=== PATIENT | male | born 1970 | race Caucasian/White ===

== ENCOUNTER 2020-03-08 00:12 | Outpatient (CLI) | payer BC, SELFPAY ==
[2020-03-09 00:18] LABS: SARS-CoV-2 RNA PCR Negative
== END 2020-03-08 00:13 | disposition home or self-care (01) ==
LOC: ANHCOVIDDT 00:12
PROVIDERS: PCP Nurse Practitioner Family; Visit Provider Internal Medicine Gastroenterology
DX: Z01.818 Encounter for other preprocedural examination (principal); Z11.59 Encounter for screening for other viral diseases
CPT/HCPCS: 87635; C9803; U0003

== ENCOUNTER 2020-03-11 01:52 | Day surgery (SDC) | payer BC, SELFPAY ==
[2020-03-04 13:02] VITALS: BMI 24.7
[2020-03-11 07:32] VITALS: BP 133/85; PULSE 95; RESP 18; TEMP 36.9; O2SAT 100; BMI 23.3
[2020-03-11] MEDS: LACTATED RINGERS 1,000 ML 150 ML IV CONT (07:50)
--- NOTE | 2020-03-11 07:53 | P.PNAN_ITS ---
Anes - Initial Pre Proc Eval Procedure: Operation Date: 03/11/20 08:30 Proposed Procedures p Colonoscopy - Alvino Lopez MD Date/Time: 03/11/20 07:53 Surgeon: Alvino Lopez MD Pre Op Diagnosis: Change in Bowel, hx Of Polyps Patient Data Age: 49 Gender: M Height: 6 ft 1 in Weight: 80.2 kg Last Vital Signs Temp 36.9 C 03/11/20 07:32 Pulse 95 03/11/20 07:32 Resp 18 03/11/20 07:32 BP 133/85 03/11/20 07:32 Pulse Ox 100 03/11/20 07:32 Allergies Allergy/AdvReac Type Severity Reaction Status Date / Time No Known Allergies Allergy Verified 03/11/20 07:25 Home Medications Medication Instructions Recorded Confirmed Type hydrochlorothiazide 25 mg PO DAILY 03/04/20 03/04/20 History lisinopril 10 mg PO DAILY 03/04/20 03/04/20 History omeprazole 40 mg PO DAILY 03/04/20 03/04/20 History Patient hx anesthesia problems: none Family hx anesthesia problems: none [facility] Past Medical History Medical History (Updated 03/11/20 @ 07:56 by Reji Miles MD) Blood in stool ETOH abuse HTN (hypertension) Surgical History Surgical History (Updated 03/11/20 @ 07:57 by Reji Miles MD) Hx of tonsillectomy Social History Social History (Updated 03/11/20 @ 07:57 by Reji Miles MD) Smoking status: Current every day smoker Anes - Eval Final PreProcedure Day of Procedure 03/11/20 07:53 Patient weight: normal Heart: regular rate and rhythm Lungs: clear to auscultation Airway: Mallampati scale class II Neurological: alert and oriented Last oral intake: >/= 8 hours ASA classification: III Emergent: no Anesthesia type and monitoring: general GIVS and standard monitoring Informed Consent: The patient's anesthetic plan and its attendant risks and benefits were discussed with the patient/family/POA. Questions were solicited and answers provided to the satisfaction of the patient/family/POA.
--- NOTE | 2020-03-11 08:01 | P.HP_ITS ---
History of Present Illness History of Present Illness Consent: Risks, benefits, and alternatives have been discussed and questions answered. Patient agrees to proceed with procedure. Chief complaint: Change in Bowel, hx Of Polyps Narrative: Luther Palencia Jr. is a 49 year old W male referred for colonoscopy secondary to history of colonic polyps. Patient states he had a colonoscopy 5 years ago at another institution which time polyps were removed. In addition to this patient has had some mild change in bowel pattern with some several loose stools and has had some diarrhea associated with this. No significant abdominal pain. No family history of inflammatory bowel disease or family history of colon polyps or colon cancer. No recent travel. Patient is a chronic smoker least 30 years and drinks at least 60 beers a day. I recommended he discontinue both of these. [facility] Past Medical History Medical History Blood in stool ETOH abuse HTN (hypertension) Surgical History Surgical History Hx of tonsillectomy Social History Social History (Updated 03/11/20 @ 07:57 by Reji Miles MD) Smoking status: Current every day smoker Meds Home Medications and Allergies Home Medications Medication Instructions Recorded Confirmed Type hydrochlorothiazide 25 mg PO DAILY 03/04/20 03/04/20 History lisinopril 10 mg PO DAILY 03/04/20 03/04/20 History omeprazole 40 mg PO DAILY 03/04/20 03/04/20 History Allergies Allergy/AdvReac Type Severity Reaction Status Date / Time No Known Allergies Allergy Verified 03/11/20 07:25 Vital Signs Vital Signs - 24 hr 03/11/20 07:32 Temperature 36.9 C Pulse Rate 95 Respiratory Rate 18 Blood Pressure 133/85 Pulse Oximetry 100 Exam Const: Orientation/consciousness: patient oriented x3 Resp: Auscultation: clear to auscultation bilaterally Cardio: Rate: regular rate Rhythm: regular rhythm Heart sounds: no murmurs GI: GI Palp: Yes Soft to palpation, No Tenderness to palpation present (GI), Yes No hepatosplenomegaly present and No Palpable mass present Auscultation: normal bowel sounds Neuro: General: patient oriented x3 and no focal motor deficits Extrem: General: no pedal edema Assessment and Plan Additional Plan Screening colonoscopy secondary history of colonic polyps and change in bowel pattern associated with diarrhea and rectal bleeding
[2020-03-11 09:13] VITALS: BP 110/78; PULSE 83; RESP 18; O2SAT 99
[2020-03-11 09:23] VITALS: BP 122/84; PULSE 77; RESP 18; O2SAT 100
[2020-03-11 09:33] VITALS: BP 122/83; PULSE 74; RESP 18; O2SAT 100
== END 2020-03-11 10:01 | disposition home or self-care (01) ==
PROVIDERS: PCP Nurse Practitioner Family; Visit Provider Internal Medicine Gastroenterology
PROC: 0DJD8ZZ Inspection of Lower Intestinal Tract, Via Natural or Artificial Opening Endoscopic (ICD-10-PCS; CPT 45378; principal; 2020-03-11 08:30)
DX: Z12.11 Encounter for screening for malignant neoplasm of colon (principal); K52.9 Noninfective gastroenteritis and colitis, unspecified; K64.8 Other hemorrhoids; Z86.010 Personal history of colon polyps; F10.10 Alcohol abuse, uncomplicated; I10 Essential (primary) hypertension; F17.210 Nicotine dependence, cigarettes, uncomplicated
CPT/HCPCS: 45380; 87635; 88305; C9803; J2704; J7120; U0003

== ENCOUNTER 2021-04-13 13:12 | Emergency (ER) | payer BC, SELFPAY ==
--- NOTE | 2021-04-13 13:17 | ED.EAR ---
HPI - Ear Problem General Chief complaint: Ear Stated complaint: ears Time Seen by Provider: 04/13/21 13:17 Source: patient and RN notes reviewed History of Present Illness HPI Narrative: Patient is a 50-year-old male who presents the urgent care with complaints of right ear pain. Patient states that been ongoing for approximately a week and a half. States that he had his normal follow-up exam and his ears looked fine then without an impaction . Patient states he has been using a syringe with water into the right ear and now he feels like there is fluid in the ear . Patient denies any fever or other upper respiratory complaints. No acute distress noted. Patient aware of the plan of care. Some parts of this dictation were generated by voice recognition software and may contain typographical and/or grammatical inaccuracies. Related Data Home Medications Medication Instructions Recorded Confirmed hydrochlorothiazide 25 mg PO DAILY 03/04/20 03/04/20 lisinopril 10 mg PO DAILY 03/04/20 03/04/20 omeprazole 40 mg PO DAILY 03/04/20 03/04/20 Allergies Allergy/AdvReac Type Severity Reaction Status Date / Time No Known Allergies Allergy Verified 03/11/20 07:25 Review of Systems Review of Systems: CONSTITUTIONAL: Denies fever, chills, or sweats. EYES: Denies visual changes, redness, or discharge. ENT: Denies rhinorrhea, congestion, sore throat. Reports of right otalgia CARDIOVASCULAR: Denies chest pain, palpitations, or edema. RESPIRATORY: Denies cough or dyspnea. GASTROINTESTINAL: Denies abdominal pain, nausea, vomiting, or diarrhea. GENITOURINARY: Denies dysuria or hematuria. SKIN: Denies rash or itching. MUSCULOSKELETAL: Denies back pain, joint pain, or myalgia. NEUROLOGIC: Denies headache, numbness, or weakness. All other systems reviewed are negative, except as documented in HPI. [facility] Past Medical History Medical History (Updated 04/13/21 @ 13:33 by JENN Spencer) Blood in stool ETOH abuse HTN (hypertension) Surgical History Surgical History Hx of tonsillectomy Social History Social History (Updated 03/11/20 @ 07:57 by Reji Miles MD) Smoking status: Current every day smoker Comments At the time of my signature, I reviewed and agree with the nursing past medical, surgical, social, and family history. There is no relevant family history pertinent to the patient complaint. Exam Narrative: GENERAL: This is a well-nourished, well-developed patient, in no apparent distress. HEAD: normocephalic, atraumatic. EYES: PERRL. Sclera clear/white. Vision is grossly intact. EARS: External ears normal, mild erythema and moderate drainage noted to the right auditory canal, right TM mildly injected/erythemic. Left auditory canal clear and without drainage, left TM normal without perforation. Hearing grossly intact. NOSE: External nose normal with no obvious nasal discharge, nares without redness, no rhinorrhea. THROAT: Mucous membranes moist NECK: Neck supple CARDIOVASCULAR: Regular rate and rhythm without murmurs, gallops, or rubs. RESPIRATORY: Clear to auscultation. Breath sounds equal bilaterally. No wheezes, rales, or rhonchi. SKIN: warm, intact with no suspicious lesions or rash, good texture and turgor. NEURO: awake, alert, and oriented to person, place and time. There were no obvious focal neurologic abnormalities. EXTREMITIES: No clubbing, cyanosis, or edema. Course Vital Signs Vital signs: Vital Signs Temperature 98.2 F 04/13/21 13:18 Pulse Rate 100 04/13/21 13:18 Respiratory Rate 20 04/13/21 13:18 Blood Pressure 142/92 H 04/13/21 13:18 Pulse Oximetry 100 04/13/21 13:18 Temperature 98.2 F 04/13/21 13:18 Pulse Rate 100 04/13/21 13:18 Respiratory Rate 20 04/13/21 13:18 Blood Pressure 142/92 H 04/13/21 13:18 Pulse Oximetry 100 04/13/21 13:18 Reviewed-patient is informed that they may have pr
[2021-04-13 13:18] VITALS: BP 142/92; PULSE 100; RESP 20; TEMP 36.8; O2SAT 100
[2021-04-13 13:40] VITALS: BP 152/90
== END 2021-04-13 13:40 | disposition home or self-care (01) ==
PROVIDERS: Emergency Provider Nurse Practitioner Family
DX: H60.91 Unspecified otitis externa, right ear (principal); H66.91 Otitis media, unspecified, right ear; I10 Essential (primary) hypertension; F17.200 Nicotine dependence, unspecified, uncomplicated
CPT/HCPCS: 99213; G0463

== ENCOUNTER 2022-02-18 12:11 | Outpatient (CLI) | payer BC, SELFPAY ==
[2022-02-18 13:18] LABS: Hematocrit 36.9 % (42.0-52.0); Mean Corpuscular HGB Conc 29.8 g/dl (32-36); Mean Corpuscular Hemoglobin 22.2 pg (26-34); Mean Corpuscular Volume 74.5 fl (80-100); Mean Platelet Volume 8.9 fl (7.4-10.4); Platelet Count Result 524 k/mm3 (150-375); Red Blood Count 4.95 M/mm3 (4.6-6.20); Red Cell Distribution Width 25.3 % (11.5-14.5)
[2022-03-20 15:09] LABS: Gliadin AB, IgG <1.0 U/mL (<15.0); Reticulin IgA Negative (Negative); TTG IGA AB <1.0 U/mL (<15.0)
== END 2022-02-18 12:12 | disposition home or self-care (01) ==
LOC: ANHLAB 12:12
PROVIDERS: PCP Nurse Practitioner Family; Visit Provider Nurse Practitioner
DX: D50.9 Iron deficiency anemia, unspecified (principal); I10 Essential (primary) hypertension
CPT/HCPCS: 36415; 83516; 84443; 85027; 86255

== ENCOUNTER 2022-04-15 00:28 | Day surgery (SDC) | payer BC, SELFPAY ==
[2022-03-02 13:20] VITALS: BMI 24.5
[2022-03-27 13:16] VITALS: BMI 24.5
--- NOTE | 2022-04-14 14:35 | PM.HPGS ---
History of Present Illness History of Present Illness Consent: Risks, benefits, and alternatives have been discussed and questions answered. Patient agrees to proceed with procedure. Chief complaint: LEONILA Narrative: Luther Palencia Jr. is a 51 year old male With ?iron deficiency anemia.? He has a past medical history of hyperlipidemia, hypertension, Raynaud's disease, hyperkalemia, anxiety and depression, history of diverticulitis (Last episode 09/2021-per patient documented on imaging at [place] and tx with antibiotics).? Labs reviewed show hemoglobin of 10.3, hematocrit 33.6, MCV 72 with a low iron of 26, iron sat of 5%, ferritin of 5 and a TIBC of 511.? He was placed on ferrous sulfate 325 mg daily and january but has since discontinuing it as it caused abdominal bloating and diarrhea which has since resolved since stopping the medication.? Patient denies any change in bowel habits, constipation, diarrhea, melena, hematochezia, or abdominal pain.? Patient denies any nausea, vomiting, dysphagia, odynophagia, GERD, early satiety, weight loss, fevers, or appetite loss.? He does take omeprazole 40 mg daily and has been on that for ?a long time with no breakthrough symptoms .? Denies family history of colorectal cancer, inflammatory bowel disease or celiac disease.? He does not believe he has ever had an EGD.? Colonoscopy in [address] Silva for personal history of colon polyps and chronic diarrhea, there was evidence of colitis and internal hemorrhoids biopsy showed chronic colitis with chronic active colitis in the transverse colon differential including toxicity, infection or inflammatory bowel disease which is inactive. Reviewing the record I see that numerous pseudopolyps were seen throughout the colon. None of the biopsies taken show any adenomatous changes. He states that there was never any therapy given him for inflammatory bowel disease. He sees blood in his stools on rare occasion. Review of Systems Review of Systems: All systems reviewed & are unremarkable except as noted in HPI and below PMFSH Past Medical History Medical History (Updated 04/14/22 @ 14:36 by Scotty Figueroa MD) Blood in stool ETOH abuse History of diverticulitis HTN (hypertension) Tobacco abuse Surgical History Surgical History Hx of tonsillectomy Social History Social History Smoking packs per day: 1 Smoking cigarettes per day: 20.0 Smoking status: Current every day smoker Tobacco type: cigarettes Alcohol intake: current Drinks per week: 14 Living arrangements: with family Spiritual care concerns: No Meds Home Medications and Allergies Home Medications Medication Instructions Recorded Confirmed Type lisinopril 10 mg tablet 10 mg PO DAILY 03/04/20 03/27/22 History omeprazole 40 mg capsule,delayed 40 mg PO DAILY 03/04/20 03/27/22 History release aspirin 81 mg tablet,delayed 81 mg PO DAILY 02/18/22 03/27/22 History release (Adult Aspirin Regimen) escitalopram oxalate 10 mg tablet 10 mg PO DAILY 02/18/22 03/27/22 History multivitamin (One-A-Day Essential 1 tablet PO DAILY 02/18/22 03/27/22 History tablet) sodium sul 1.479 gram-potas ch See Rx Instructions PO PER PKG DIR 02/25/22 03/27/22 Rx 0.188 gram-magnes sul 0.225 gram #24 tabs tablet (Sutab) ferrous sulfate 325 mg (65 mg 325 mg PO DAILY 03/02/22 03/27/22 History iron) capsule,extended release Allergies Allergy/AdvReac Type Severity Reaction Status Date / Time No Known Allergies Allergy Verified 04/15/22 07:26 Exam Const: General: alert Orientation/consciousness: patient oriented x3 Resp: Auscultation: clear to auscultation bilaterally Cardio: Rhythm: regular rhythm GI: GI Palp: Yes Soft to palpation and No Tenderness to palpation present (GI) Neuro: General: patient oriented x3 Assessment and Plan Assessment an
[2022-04-15 07:28] VITALS: BP 128/85; PULSE 82; RESP 20; TEMP 36.3; O2SAT 100; BMI 23.6
[2022-04-15] MEDS: LACTATED RINGERS 1,000 ML 150 ML IV CONT (07:36)
--- NOTE | 2022-04-15 08:18 | P.PNAN_ITS ---
Anes - Initial Pre Proc Eval Procedure: Operation Date: 04/15/22 08:30 Proposed Procedures p Esophagogastroduodenoscopy & Colonoscopy - Scotty Figueroa MD Date/Time: 04/15/22 08:18 Surgeon: Scotty Figueroa MD Pre Op Diagnosis: LEONILA Patient Data Age: 51 Gender: M Height: 1.83 m Weight: 79.1 kg Last Vital Signs Temp 97.3 F L 04/15/22 07:28 Pulse 82 04/15/22 07:28 Resp 20 04/15/22 07:28 BP 128/85 04/15/22 07:28 Pulse Ox 100 04/15/22 07:28 O2 Del Method Room Air 04/15/22 07:28 Allergies Allergy/AdvReac Type Severity Reaction Status Date / Time No Known Allergies Allergy Verified 04/15/22 07:26 Home Medications Medication Instructions Recorded Confirmed Type lisinopril 10 mg tablet 10 mg PO DAILY 03/04/20 03/27/22 History omeprazole 40 mg capsule,delayed 40 mg PO DAILY 03/04/20 03/27/22 History release aspirin 81 mg tablet,delayed 81 mg PO DAILY 02/18/22 03/27/22 History release (Adult Aspirin Regimen) escitalopram oxalate 10 mg tablet 10 mg PO DAILY 02/18/22 03/27/22 History multivitamin (One-A-Day Essential 1 tablet PO DAILY 02/18/22 03/27/22 History tablet) sodium sul 1.479 gram-potas ch See Rx Instructions PO PER PKG DIR 02/25/22 03/27/22 Rx 0.188 gram-magnes sul 0.225 gram #24 tabs tablet (Sutab) ferrous sulfate 325 mg (65 mg 325 mg PO DAILY 03/02/22 03/27/22 History iron) capsule,extended release Patient hx anesthesia problems: none Family hx anesthesia problems: none Results Review: All pre-operative results and documents have been reviewed as part of the pre- operative evaluation. [facility] Past Medical History Medical History (Updated 04/14/22 @ 14:36 by Scotty Figueroa MD) Blood in stool ETOH abuse History of diverticulitis HTN (hypertension) Tobacco abuse Surgical History Surgical History Hx of tonsillectomy Social History Social History Smoking packs per day: 1 Smoking cigarettes per day: 20.0 Smoking status: Current every day smoker Tobacco type: cigarettes Alcohol intake: current Drinks per week: 14 Living arrangements: with family Spiritual care concerns: No Anes - Eval Final PreProcedure Day of Procedure 04/15/22 08:18 Patient weight: normal Heart: regular rate and rhythm Lungs: clear to auscultation Airway: Mallampati scale class II Neurological: alert and oriented Last oral intake: >/= 8 hours ASA classification: III Emergent: no Anesthetic plan: proceed Anesthesia type and monitoring: general GIVS and standard monitoring Results Review: All pre-operative results and documents have been reviewed as part of the pre- operative evaluation. Informed Consent: The patient's anesthetic plan and its attendant risks and benefits were discussed with the patient/family/POA. Questions were solicited and answers provided to the satisfaction of the patient/family/POA.
[2022-04-15 09:22] VITALS: BP 114/84; PULSE 73; RESP 22; O2SAT 100
--- NOTE | 2022-04-15 09:25 | SUR.OPER ---
EGD END 850 COLON START 858
[2022-04-15 09:32] VITALS: BP 127/89; PULSE 73; RESP 19; O2SAT 100
== END 2022-04-15 09:55 | disposition home or self-care (01) ==
PROVIDERS: PCP Nurse Practitioner Family; Visit Provider Internal Medicine Gastroenterology
PROC: 0DJ08ZZ Inspection of Upper Intestinal Tract, Via Natural or Artificial Opening Endoscopic (ICD-10-PCS; CPT 43235; principal; 2022-04-15 08:30)
DX: D50.9 Iron deficiency anemia, unspecified (principal); K51.40 Inflammatory polyps of colon without complications; K29.70 Gastritis, unspecified, without bleeding; I10 Essential (primary) hypertension; Z79.82 Long term (current) use of aspirin; F17.210 Nicotine dependence, cigarettes, uncomplicated; F41.9 Anxiety disorder, unspecified; F32.A Depression, unspecified
CPT/HCPCS: 45385; 45380; 45381; 43239; 87081; 88305; J2704; J7120

== ENCOUNTER 2022-10-29 08:05 | Outpatient (CLI) | payer BC, SELFPAY ==
[2022-10-29 10:10] LABS: Basophils Percent Auto 0.3 % (0.2-1.2); Eosinophils Absolute Auto 0.3 K/mm3 (0-0.3); Eosinophils Percent Auto 3.3 % (0-4.4); Hematocrit 42.5 % (42.0-52.0); Hemoglobin 14.6 g/dL (14.0-18.0); Immature Granulocyte Absolute 0.01 K/mm3 (0.00-0.031); Immature Granulocyte Percent A 0.1 % (0-0.5); Lymphocytes Absolute Auto 1.85 K/mm3 (0.9-3.2); Lymphocytes Percent Auto 19.8 % (18.3-44.2); Mean Corpuscular HGB Conc 34.4 g/dl (32-36); Mean Corpuscular Hemoglobin 31.2 pg (26-34); Mean Corpuscular Volume 90.8 fl (80-100); Mean Platelet Volume 8.9 fl (7.4-10.4); Monocytes Absolute Auto 0.8 K/mm3 (0.1-0.6); Monocytes Percent Auto 8.6 % (2.6-8.5); Neutrophils Absolute Auto 6.3 K/mm3 (1.3-6.7); Neutrophils Percent Auto 67.9 % (45.5-73.1); Platelet Count Result 302 k/mm3 (150-375); Red Blood Count 4.68 M/mm3 (4.6-6.20); Red Cell Distribution Width 13.6 % (11.5-14.5); White Blood Count 9.3 K/mm3 (4.5-10.0)
[2022-10-29 14:14] LABS: NT Pro B Type Natriuretic Pept < 20 pg/mL (19.9-100)
--- NOTE | 2022-10-29 16:16 | P.PCNPFT_ITS ---
PFT Procedure Performed PFT Procedure Performed Spirometry with Pre/Post Bronchodilator Plethysmography (Lung Vol) Diffusing Cap (DLCO) Flow Vol Loop PFT Interpretation DOS: 10/29/2022 REQUESTING: Kori Ruano OPT[employer] TEST TECHNICIANCaty REASON FOR TESTING: Chronic cough PULMONARY FUNCTION TESTS Results are Grade B as far as repeatability of the spirometry FEV1 maneuver before and after bronchodilator. Spirometry: Pre-bronchodilator FEV1 is 3.57 L, 85%, normal. Pre-bronchodilator FVC is 5.55 L, 104%, normal. FEV1/ FVC ratio is 64%, decreased, consistent with airflow obstruction. After bronchodilator administration there was a 20% increase in the FEV1, post bronchodilator FEV1 is 4.26 L, 102% predicted. After bronchodilator, there is a 3% drop in the FVC, 101% predicted. The FEV1:FVC ratio is 79%, normal. Lung volumes: Total lung capacity is 7.49 L, 102%, normal. Residual volume is 1.94 L, 90%, normal. RV/TLC is 26%, normal. Airway resistance 1.51 cmH20/L/sec, 148%, increased. Diffusion: DLCO 35, 111% predicted, normal. DLCO/ VA is 5.8, 131%, elevated above normal range. Flow volume loop: The flow volume volume loop is abnormal and not reproducible. It has attenuation on the inspiratory limb. This is a nonspecific finding. IMPRESSION: This study shows a mild obstructive ventilatory impairment with good response to bronchodilator, normal lung volumes, normal diffusion capacity which over corrects for alveolar volume. The abnormal inspiratory limb of the flow volume loop is a nonspecific finding. Clinical correlation is recommended. Afua Santos MD
[2022-11-01 13:00] LABS: Immunoglobulin G, Serum 1340 mg/dL (600-1640); Immunoglobulin G1 686 mg/dL (382-929); Immunoglobulin G2 365 mg/dL (241-700); Immunoglobulin G3 76 mg/dL (22-178); Immunoglobulin G4 72.2 mg/dL (4.0-86.0)
[2022-11-02 10:50] LABS: NIL 0.09 IU/mL; Quantiferon TB Plus, 1T NEGATIVE (NEGATIVE); TB1-NIL 0.04 IU/mL; TB2-NIL 0.07 IU/mL
[2022-11-03 03:50] LABS: Immunoglobulin E 326 kU/L (<=114)
[2022-11-03 21:00] LABS: Alpha-1-Antitrypsin, QN 158 mg/dL (83-199)
== END 2022-10-29 08:06 | disposition home or self-care (01) ==
PROVIDERS: PCP Nurse Practitioner Family; Visit Provider Nurse Practitioner
DX: R06.00 Dyspnea, unspecified (principal); R05.3 Chronic cough
CPT/HCPCS: 36415; 80048; 82103; 82104; 82784; 82785; 82787; 83880; 85025; 86003; 86480; 94060; 94726; 94729

== ENCOUNTER 2022-12-29 07:59 | Outpatient (CLI) | payer BC, SELFPAY ==
--- NOTE | 2022-12-29 12:19 | WPDMETH ---
Methacholine Procedure Perform Procedure Performed Methacholine Challenge Methacholine Challenge Methacholine Challenge: This is a methacholine challenge test. The test was performed and interpreted in accordance with the 2017 ERS technical standard, endorsed by the ATS, using the GLI 2012 reference equations. Testing was performed with increasing doses of nebulized methacholine following a quadrupling dosage protocol. The methacholine dose was delivered via the [employer] nebulizer using a 1-minutes tidal breathing protocol. The best post-methacholine FEV1 values were used to determine the change from the post diluent FEV1. The delivered dose of methacholine was used to calculate the provocative dose causing a 20% fall in FEV1 (PD20). Findings: Baseline FEV1 3.52 L, 84% predicted. Post diluent FEV1 3.38 L Post 1.81 mcg methacholine FEV1 3.36 L, decreased 1% Post 7.26 mcg methacholine FEV1 3.38 L, decreased 0% Post 29.03 mcg methacholine FEV1 2.89 L, decreased 14% Post 116.1 mcg methacholine FEV1 2.83 L, decreased 16% Post 464.4 mcg methacholine FEV1 1.48 L, decreased 56% Post albuterol nebulization FEV1 3.52 L Impression: The PD20 is 132 mcg which is categorized as borderline airway hyperresponsiveness. There are no prior methacholine challenge studies for comparison
== END 2022-12-29 08:00 | disposition home or self-care (01) ==
PROVIDERS: PCP Nurse Practitioner Family; Visit Provider Nurse Practitioner
DX: J45.909 Unspecified asthma, uncomplicated (principal)
CPT/HCPCS: 94070; J7674

== ENCOUNTER 2024-04-19 01:20 | Day surgery (SDC) | payer BC, SELFPAY ==
[2024-04-05 08:48] VITALS: BMI 25.1
--- NOTE | 2024-04-18 17:29 | P.PNAN_ITS ---
Anes - Eval Pre Procedure Procedure: Operation Date: 04/19/24 09:30 Proposed Procedures p Colonoscopy - Stephen Kenny MD Date/Time: 04/18/24 17:29 Pre Op Diagnosis: Personal Hx. colon polyps Patient Data Age: 53 Gender: M Height: 1.83 m Weight: 84 kg Allergies Allergy/AdvReac Type Severity Reaction Status Date / Time No Known Allergies Allergy Verified 04/05/24 08:46 Home Medications Medication Instructions Recorded Confirmed Type multivitamin (One-A-Day Essential 1 tablet PO DAILY 02/18/22 04/05/24 History tablet) budesonide 160 mcg-glycopyr 9 2 inh inhalation BID 01/08/23 04/05/24 History mcg-formot 4.8 mcg/actuation HFA inhaler (Breztri Aerosphere) montelukast 10 mg tablet 10 mg PO DAILY 01/08/23 04/05/24 History (Singulair) albuterol sulfate 90 mcg/actuation 1 puff inhalation Q4H PRN asthma 01/05/24 04/05/24 History aerosol inhaler fluticasone propionate 50 1 spray intranasal BID 01/05/24 04/05/24 History mcg/actuation nasal spray,suspension lisinopril 10 mg tablet 10 mg PO DAILY #90 tabs 01/05/24 04/05/24 Rx omeprazole 40 mg capsule,delayed 40 mg PO DAILY #90 caps 01/05/24 04/05/24 Rx release valacyclovir 500 mg tablet 500 mg PO DAILY #90 tabs 01/05/24 04/05/24 Rx escitalopram oxalate 10 mg tablet 10 mg PO DAILY #30 tabs 02/17/24 04/05/24 Rx Patient hx anesthesia problems: none Family hx anesthesia problems: none Results Review: All pre-operative results and documents have been reviewed as part of the pre- operative evaluation. [facility] Past Medical History Medical History Allergies Blood in stool ETOH abuse GERD (gastroesophageal reflux disease) Herpes genitalia History of diverticulitis HTN (hypertension) Iron deficiency anemia Tobacco abuse Surgical History Surgical History H/O colonoscopy Hx of tonsillectomy Family History Family History Father Hypertension Mother Hypertension Social History Social History Smoking packs per day: 1 Smoking cigarettes per day: 20.0 Smoking status: Former smoker Tobacco type: cigarettes Smoking end date: 09/07/22 Alcohol intake: current Drinks per week: 6 Substance use: never Substance use type: does not use Do You Feel Safe in your Home?: Yes Lack of Transportation: No Lack of Food: Never True Current Housing: I Have Housing Concerned About Future Housing: No Difficulty Paying Gas/Electric Bills: No Difficulty Paying for Meds: No Currently Unemployed: No Education: Bachelor's Degree Difficulty w/ Childcare or Family Care: No Living arrangements: with family Additional living arrangements comments: Occupation/Education: occupation 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
[2024-04-19 08:15] VITALS: BP 135/93; PULSE 79; RESP 16; TEMP 36.2; O2SAT 100; BMI 25.4
[2024-04-19] MEDS: LACTATED RINGERS 1,000 ML 150 ML IV CONT (08:34)
--- NOTE | 2024-04-19 08:48 | PM.HPGS ---
History of Present Illness History of Present Illness Consent: Risks, benefits, and alternatives have been discussed and questions answered. Patient agrees to proceed with procedure. Chief complaint: Personal Hx. colon polyps Narrative: Luther Palencia Jr. is a 53 year old male here for colonoscopy, 2019 and 2021 noted to have inactive colitis with multiple inflammatory pseudopolyps in right colon (bx without adenoma, no dysplasia)- he has been having flare-up colitis 2 times a year, he is not taking any medication. Review of Systems Review of Systems: All systems reviewed & are unremarkable except as noted in HPI and below PMFSH Past Medical History Medical History (Updated 04/19/24 @ 08:50 by Stephen Kenny MD) Allergies Blood in stool ETOH abuse GERD (gastroesophageal reflux disease) Herpes genitalia History of diverticulitis HTN (hypertension) Iron deficiency anemia Pseudopolyposis, colon Tobacco abuse Surgical History Surgical History H/O colonoscopy Hx of tonsillectomy Family History Family History Father Hypertension Mother Hypertension Social History Social History Smoking packs per day: 1 Smoking cigarettes per day: 20.0 Smoking status: Former smoker Tobacco type: cigarettes Smoking end date: 09/07/22 Alcohol intake: current Drinks per week: 6 Substance use: never Substance use type: does not use Do You Feel Safe in your Home?: Yes Lack of Transportation: No Lack of Food: Never True Current Housing: I Have Housing Concerned About Future Housing: No Difficulty Paying Gas/Electric Bills: No Difficulty Paying for Meds: No Currently Unemployed: No Education: Bachelor's Degree Difficulty w/ Childcare or Family Care: No Living arrangements: with family Additional living arrangements comments: Occupation/Education: occupation 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 Agree to blood products: Yes Meds Home Medications and Allergies Home Medications Medication Instructions Recorded Confirmed Type multivitamin (One-A-Day Essential 1 tablet PO DAILY 02/18/22 04/19/24 History tablet) budesonide 160 mcg-glycopyr 9 2 inh inhalation BID 01/08/23 04/19/24 History mcg-formot 4.8 mcg/actuation HFA inhaler (Breztri Aerosphere) montelukast 10 mg tablet 10 mg PO DAILY 01/08/23 04/19/24 History (Singulair) albuterol sulfate 90 mcg/actuation 1 puff inhalation Q4H PRN asthma 01/05/24 04/19/24 History aerosol inhaler fluticasone propionate 50 1 spray intranasal BID 01/05/24 04/19/24 History mcg/actuation nasal spray,suspension lisinopril 10 mg tablet 10 mg PO DAILY #90 tabs 01/05/24 04/19/24 Rx omeprazole 40 mg capsule,delayed 40 mg PO DAILY #90 caps 01/05/24 04/19/24 Rx release valacyclovir 500 mg tablet 500 mg PO DAILY #90 tabs 01/05/24 04/19/24 Rx escitalopram oxalate 10 mg tablet 10 mg PO DAILY #30 tabs 02/17/24 04/19/24 Rx Allergies Allergy/AdvReac Type Severity Reaction Status Date / Time No Known Allergies Allergy Verified 04/19/24 08:24 Vital Signs Vital Signs - 24 hr 04/19/24 08:15 Temperature 97.2 F L Pulse Rate 79 Respiratory Rate 16 Blood Pressure 135/93 H Pulse Oximetry 100 Oxygen Delivery Room Air Exam Const: General: comfortable and no acute distress HENMT: Face/Nose/Sinus: Normal nares present Eyes: General: appearance normal, both eyes and all related structures Neck: Neck: no JVD Resp: Auscultation: clear to auscultation bilaterally Cardio: Rate: regular rate Rhythm: regular rhythm GI: Inspection: non-distended GI Palp: Yes Soft to palpation Skin: General skin exam: normal color Neuro: General: gait normal Speech: normal speech Extrem: Ge
--- NOTE | 2024-04-19 08:49 | P.PNAN_ITS ---
Anes - Eval Final PreProcedure Day of Procedure 04/19/24 08:49 Patient weight: normal Heart: regular rate and rhythm Lungs: clear to auscultation and normal air movement Airway: Mallampati scale class III Neurological: alert and oriented Last oral intake: >/= 8 hours ASA classification: III Emergent: no Anesthetic plan: proceed Anesthesia type and monitoring: general GIVS Results Review: All pre-operative results and documents have been reviewed as part of the pre- operative evaluation. Informed Consent: The patient's anesthetic plan and its attendant risks and benefits were discussed with the patient/family/POA. Questions were solicited and answers provided to the satisfaction of the patient/family/POA.
--- NOTE | 2024-04-19 09:18 | WPDANESEPPF ---
Anes - Initial Pre Proc Eval Procedure: Operation Date: 04/19/24 09:30 Proposed Procedures p Colonoscopy - Stephen Kenny MD Date/Time: 04/19/24 09:18 Surgeon: Stephen Kenny MD Pre Op Diagnosis: Personal Hx. colon polyps Patient Data Age: 53 Gender: M Height: 1.83 m Weight: 85.3 kg Last Vital Signs Temp 97.2 F L 04/19/24 08:15 Pulse 79 04/19/24 08:15 Resp 16 04/19/24 08:15 BP 135/93 H 04/19/24 08:15 Pulse Ox 100 04/19/24 08:15 O2 Del Method Room Air 04/19/24 08:15 Allergies Allergy/AdvReac Type Severity Reaction Status Date / Time No Known Allergies Allergy Verified 04/19/24 08:24 Home Medications Medication Instructions Recorded Confirmed Type multivitamin (One-A-Day Essential 1 tablet PO DAILY 02/18/22 04/19/24 History tablet) budesonide 160 mcg-glycopyr 9 2 inh inhalation BID 01/08/23 04/19/24 History mcg-formot 4.8 mcg/actuation HFA inhaler (Breztri Aerosphere) montelukast 10 mg tablet 10 mg PO DAILY 01/08/23 04/19/24 History (Singulair) albuterol sulfate 90 mcg/actuation 1 puff inhalation Q4H PRN asthma 01/05/24 04/19/24 History aerosol inhaler fluticasone propionate 50 1 spray intranasal BID 01/05/24 04/19/24 History mcg/actuation nasal spray,suspension lisinopril 10 mg tablet 10 mg PO DAILY #90 tabs 01/05/24 04/19/24 Rx omeprazole 40 mg capsule,delayed 40 mg PO DAILY #90 caps 01/05/24 04/19/24 Rx release valacyclovir 500 mg tablet 500 mg PO DAILY #90 tabs 01/05/24 04/19/24 Rx escitalopram oxalate 10 mg tablet 10 mg PO DAILY #30 tabs 02/17/24 04/19/24 Rx Patient hx anesthesia problems: none Family hx anesthesia problems: none Results Review: All pre-operative results and documents have been reviewed as part of the pre-operative evaluation. [facility] Past Medical History Medical History (Updated 04/19/24 @ 08:50 by Stephen Kenny MD) Allergies Blood in stool ETOH abuse GERD (gastroesophageal reflux disease) Herpes genitalia History of diverticulitis HTN (hypertension) Iron deficiency anemia Pseudopolyposis, colon Tobacco abuse Surgical History Surgical History H/O colonoscopy Hx of tonsillectomy Family History Family History Father Hypertension Mother Hypertension Social History Social History Smoking packs per day: 1 Smoking cigarettes per day: 20.0 Smoking status: Former smoker Tobacco type: cigarettes Smoking end date: 09/07/22 Alcohol intake: current Drinks per week: 6 Substance use: never Substance use type: does not use Do You Feel Safe in your Home?: Yes Lack of Transportation: No Lack of Food: Never True Current Housing: I Have Housing Concerned About Future Housing: No Difficulty Paying Gas/Electric Bills: No Difficulty Paying for Meds: No Currently Unemployed: No Education: Bachelor's Degree Difficulty w/ Childcare or Family Care: No Living arrangements: with family Additional living arrangements comments: Occupation/Education: occupation 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 Agree to blood products: Yes Anes - Eval Final PreProcedure Day of Procedure 04/19/24 09:18 Patient weight: normal Heart: regular rate and rhythm Lungs: clear to auscultation Airway: Mallampati scale Neurological: alert and oriented Last oral intake: >/= 8 hours ASA classification: III Emergent: no Anesthetic plan: proceed Anesthesia type and monitoring: general GIVS and standard monitoring Results Review: All pre-operative results and documents have been reviewed as part of the pre-operative evaluation. Informed Consent: The patient's anesthetic plan and its attendant risks and benefits were discussed with the purvi
[2024-04-19 09:39] VITALS: BP 116/76; PULSE 72; RESP 16; O2SAT 100
[2024-04-19 09:49] VITALS: BP 123/80; PULSE 64; RESP 16; O2SAT 96
[2024-04-19 09:56] VITALS: BP 127/85; PULSE 68; RESP 16; O2SAT 100
== END 2024-04-19 10:29 | disposition home or self-care (01) ==
PROVIDERS: PCP Nurse Practitioner Family; Referring Provider Internal Medicine Gastroenterology; Visit Provider Internal Medicine Gastroenterology
PROC: 0DJD8ZZ Inspection of Lower Intestinal Tract, Via Natural or Artificial Opening Endoscopic (ICD-10-PCS; CPT 45378; principal; 2024-04-19 09:30)
DX: K62.89 Other specified diseases of anus and rectum (principal); K51.40 Inflammatory polyps of colon without complications; K21.9 Gastro-esophageal reflux disease without esophagitis; I10 Essential (primary) hypertension; D50.9 Iron deficiency anemia, unspecified; A60.00 Herpesviral infection of urogenital system, unspecified; Z87.891 Personal history of nicotine dependence; Z79.51 Long term (current) use of inhaled steroids
CPT/HCPCS: 45380; 88305; J2704; J7120

== ENCOUNTER 2024-12-13 13:48 | Outpatient (CLI) | payer BC, SELFPAY ==
[2024-12-13 14:28] LABS: Hematocrit 40.7 % (42.0-52.0); Hemoglobin 13.8 g/dL (14.0-18.0); Mean Corpuscular HGB Conc 33.9 g/dl (32-36); Mean Corpuscular Hemoglobin 31.7 pg (26-34); Mean Corpuscular Volume 93.3 fl (80-100); Mean Platelet Volume 8.3 fl (7.4-10.4); Platelet Count Result 289 k/mm3 (150-375); Red Blood Count 4.36 M/mm3 (4.6-6.20); Red Cell Distribution Width 11.8 % (11.5-14.5); White Blood Count 7.3 K/mm3 (4.5-10.0)
[2024-12-13 14:44] LABS: Alanine Aminotransferase 42 U/L (6-50); Albumin Level 4.6 g/dL (3.5-5.1); Alkaline Phosphatase 104 U/L (38-126); Anion Gap 8 mmol/L (4-12); Aspartate Amino Transferase 42 U/L (17-59); Bilirubin,Total 0.4 mg/dL (0.2-1.3); Blood Urea Nitrogen 13 mg/dL (9-20); CRP < 0.5 mg/dL (<1.0); Carbon Dioxide 30 mmol/L (22-30); Chloride 92 mmol/L (98-107); Estimated Glomerular Filt Rate > 60; Glucose 124 mg/dL (65-110); Potassium 4.4 mmol/L (3.4-5.0); Sodium 130 mmol/L (137-145)
[2024-12-13 15:04] LABS: Erythrocyte Sedimentation Rate 12 mm/hr (0-20)
--- OUTSIDE RECORDS SUMMARY | 2024-12-13 15:28 | XMS_ITS | Clinical Summary ---
Author Organization [facility] Address [address] [place] [address] Phone Care Team Providers Care Program Supervisor Name Role Phone Patricia Chan MACHINE DYER, VOLCANOLOGY PROFESSOR Primary Care Pro vider Social History Tobacco Use Types Packs/Day Years Used Date Smoking Tobacco: Never Assessed Sex and Gender Information Value Date Recorded Sex Assigned at Not on file Legal Sex Male 9:44 AM CDT Gender Identity Not on file Sexual Orientation Not on file Plan of Treatment Health Maintenance Due Date Last Done Comments Hepatitis C Virus (HCV) Screening 1972 TdaP Immunization 1972 Hepatitis B Immunization (1 of 3 - 19+ 3-dose series) 1991 Colonoscopy 2017 Colorectal Cancer Screening 2017 Cologuard 2022 Immunochemical Fecal Occult Blood 2022 Pneumococcal Immunization (50+ years) (1 of 1 - PCV) 2022 Zoster Immunization (1 of 2) 2022 Influenza Immunization (#1) 05/07/202407/09, 07/16/2018, 07/11/2018, Additional history exists SARS-COV-2 Immunization (2023- season) 2024 Respiratory Syncytial Virus (RSV) Immunization (Adult) (1 - 1-dose 75+ series) 2047 Meningococcal Immunization (ACWY) Aged Out No longer eligible based on patient's age to complete this topic Rotavirus Immunization Aged Out No lo nger eligible based on patient's age to complete this topic Insurance [employer] Care Teams Program Supervisor Relationship Specialty Start Date End Date Patricia Chan APRN, VOLCANOLOGY PROFESSOR [address] [place] [address] PCP - General Certified Nurse Practitioner 04/28/22
--- OUTSIDE RECORDS SUMMARY | 2024-12-13 15:28 | XMS_ITS | Continuity of Care Document ---
Author Name [facility] Organization [facility] Care Team Providers Care Farmworker Fur Name Role Phone [facility] Unavailable Unavailable Problems Combined list of problems from [facility] and [facility] facilities. It does not include entries that were removed or entered in error. Problem Status Onset Date Problem Type Date of Resolution Comments Source Allergic Rhinitis ([facility] [id number]) Active Condition [facility] Asthma ([facility] [id number]) Active Condition [facility] GERD - Gastro-Esophageal Reflux Disease ([facility] [id number]) Active Condition [facility] Low Back Pain ([facility] [id number]) Active Condition [facility] Neck Pain ([facility] [id number]) Active Condition [facility] Diagnosis: ICD-10-CM M25.511 Pain in right shoulder Active Diagnosis [facility] Diagnosis: ICD-10-CM H52.4 Presbyopia Active Diagnosis [facility] Diagnosis: ICD-10-CM J45.909 Unspecified asthma, uncomplicated Active Diagnosis [facility] Medications Combined list of outpatient medications from [facility] and [facility] facilities.Medications provided include 1) outpatient medications from the last 15 months, and 2) patient-reported medications. Medication Details Route Status Patient Instructions Prescription Expires Prescription Number Last Dispense Date Ordering Provider Order Date Order Qty Source ALBUTEROL (CFC-F) INHL,ORAL INHALE ORAL INHALATI ON FOUR TIMES A DAY RESPIR ATORY (INHAL ATION) ACTIVE COLEMAN,A RMIDA A 2022 [facility] ALBUTEROL SO4 90MCG/ACTUA T (CFC-F) INHL,ORAL,8 .5GM INHALE 2 PUFFS ORAL INHALATI ON FOUR TIMES A DAY NEEDED FOR EXERCISE -INDUCED BRONCHOS PASM SHAKE WELL. RINSE MOUTHPIE CE FREQUENT LY TO PREVENT CLOGGING . RESPIR ATORY (INHAL ATION) 11/11/2024 [id number] COLEMAN,A RMIDA A 2023 1 [facility] DICLOFENAC NA 1% GEL,TOP APPLY 2 GM TO AFFECTED AREA(S) FOUR TIMES A DAY NEEDED TO RIGHT SHOULDER FOR PAIN. DO NOT EXCEED MORE THAN 16 GRAMS DAILY TO ANY LOWER EXTREMIT Y JOINT. NOT MORE THAN 8 GRAMS DAILY TO ANY UPPER EXTREMIT Y JOINT. MAX 32GM/DAY OVER ALL JOINTS. (MEASURE DOSE WITH RULER ATTACHED INSIDE BOX) ANA Trevizo 12/03/2023 [id number] EMIGDIO NAQVI 2023 100 [facility] FERROUS SO4 325MG TAB TAKE ONE TABLET BY MOUTH ONCE A DAY ORAL ACTIVE COLEMAN,A RMIDA A 2022 [facility] LISINOPRIL 40MG TAB TAKE ONE-HALF TABLET BY MOUTH ONCE A DAY ORAL ACTIVE COLEMAN,A RMIDA A 2022 [facility] MONTELUKAST NA 10MG TAB TAKE ONE TABLET BY MOUTH EVERY EVENING FOR EXERCISE -INDUCED BRONCHOC ONSTRICT ION ORAL ACTIVE 10/27/2025 [id number] COLEMAN,A RMIDA A 2024 90 [facility] MONTELUKAST NA 10MG TAB TAKE ONE TABLET BY MOUTH EVERY EVENING FOR EXERCISE -INDUCED BRONCHOC ONSTRICT ION ORAL DISCONT INUED 11/11/2024 [id number] COLEMAN,A RMIDA A 2023 90 [facility] MONTELUKAST NA 10MG TAB TAKE ONE TABLET BY MOUTH EVERY EVENING ORAL ACTIVE COLEMAN,A RMIDA A 2022 [facility] OMEPRAZOLE 40MG CAP,EC TAKE 1 CAPSULE BY MOUTH EVERY MORNING BEFORE A MEAL ORAL ACTIVE COLEMAN,A RMIDA A 2022 [facility] Immunizations Combined list of available immunizations from the Department of Defense and Veterans Affairs facilities. Immunization Series Date Given Administered By Site Reaction Lot Number CVX Code Drug Polysomnographic Technologist Status Comments Source PNEUMOCOCCAL POLYSACCHARID E PPV23 1 2022 33 complet ed [facility] INFLUENZA, INJECTABLE, MDCK, PRESERVATIVE FREE, QUADRIVALENT 6 2018 171 complet ed [facility] INFLUENZA, INJECTABLE, QUADRIVALENT, PRESERVATIVE FREE 5 2017 150 complet ed [facility] INFLUENZA, INJECTABLE, QUADRIVALENT 4 2017 158 complet ed [facility] INFLUENZA, INJECTABLE, QUADRIVALENT, PRESERVATIVE FREE 3 2016 150 complet ed [facility] INFLUENZA, INJECTABLE, QUADRIVALENT 2 2014 158 complet ed [facility] INFLUENZA, SEASONAL, INJECTABLE, PRESERVATIVE FREE 1 2012 140 complet ed [facility] Results Combined list of recent chemistry, hematology and other laboratory results from Department of Defense and Veterans Affairs, ranging from 15 months to all on record, depending upon the facility. Order Name Results Value Reference Range Date Interpretation Specimen Comments Source MICRAL/CR EAT PROFILE (STL) ALBUMIN [MASS/VOLUM E] IN URINE 19 mg/L 11/11 Specimen Type: URINE No comment entered. Ordering Provider: CYNDI COLEMAN Report Released Date/Time: Nov 11, 2023 03:50 PM Reporting Lab: [facility] [address] Performing Lab: [facility] [id number] [place] [address] MICRAL/CR EAT PROFILE (STL) ALBUMIN/CRE ATININE [MASS RATIO] IN URINE 33 mg/g 0 - 29 11/11 H Specimen Type: URINE No comment entered. Ordering Provider: CYNDI COLEMAN Report Released Date/Time: Nov 11, 2023 03:50 PM Reporting Lab: [facility] [address] Performing Lab: [facility] [address] MICRAL/CR EAT PROFILE (STL) CREATININE [MASS/VOLUM E] IN URINE 58.0 mg/dL 63.0 - 166.0 11/11 L Specimen Type: URINE No comment entered. Ordering Provider: CYNDI COLEMAN Report Released Date/Time: Nov 11, 2023 03:50 PM Reporting Lab: [facility] [place] [address] Performing Lab: [facility] [place] LEUKOCYTES [#/VOLUME] IN BLOOD BY AUTOMATED COUNT 7.5 10*3/uL 3.6 - 11.2 11/11 Specimen Type: BLOOD No comment entered. Ordering Provider: CYNDI COLEMAN Report Released Date/Time: Nov 11, 2023 03:50 PM Reporting Lab: [facility] [place] [address] Performing Lab: [facility] CBC ERYTHROCYTE S [#/VOLUME] IN BLOOD BY AUTOMATED COUNT 4.61 10*6/uL 4.10 - 5.70 11/11 Specimen Type: BLOOD No comment entered. Ordering Provider: CYNDI COLEMAN Report Released Date/Time: Nov 11, 2023 03:50 PM Reporting Lab: [facility] [place] [address] Performing Lab: [facility] [place] HEMOGLOBIN [MASS/VOLUM E] IN BLOOD 14.0 g/dL 13.1 - 16.8 11/11 Specimen Type: BLOOD No comment entered. Ordering Provider: CYNDI COLEMAN Report Released Date/Time: Nov 11, 2023 03:50 PM Reporting Lab: [facility] [place] [address] Performing Lab: [facility] [place] [phone] CBC HEMATOCRIT [VOLUME FRACTION] OF BLOOD 41.2 38.2 - 48.4 11/11 Specimen Type: BLOOD No comment entered. Ordering Provider: CYNDI COLEMAN Report Released Date/Time: Nov 11, 2023 03:50 PM Reporting Lab: [facility] [place] [address] Performing Lab: [facility] CBC MCV [ENTITIC VOLUME] BY AUTOMATED COUNT 89.4 fL 80.0 - 100.0 11/11 Specimen Type: BLOOD No comment entered. Ordering Provider: CYNDI COLEMAN Report Released Date/Time: Nov 11, 2023 03:50 PM Reporting Lab: [facility] [place] [address] Performing Lab: [facility] CBC MCH [ENTITIC MASS] BY AUTOMATED COUNT 30.4 pg 27.0 - 34.0 11/11 Specimen Type: BLOOD No comment entered. Ordering Provider: CYNDI COLEMAN Report Released Date/Time: Nov 11, 2023 03:50 PM Reporting Lab: [facility] [place] [address] Performing Lab: [facility] CBC MCHC [MASS/VOLUM E] BY AUTOMATED COUNT 34.0 g/dL 33.0 - 36.0 11/11 Specimen Type: BLOOD No comment entered. Ordering Provider: CYNDI COLEMAN Report Released Date/Time: Nov 11, 2023 03:50 PM Reporting Lab: [facility] [place] [address] Performing Lab: [facility] [id number] CBC PLATELETS [#/VOLUME] IN BLOOD BY AUTOMATED COUNT 401 10*3/uL 150 - 400 11/11 H Specimen Type: BLOOD No comment entered. Ordering Provider: CYNDI COLEMAN Report Released Date/Time: Nov 11, 2023 03:50 PM Reporting Lab: [facility] [place] [address] Performing Lab: [facility] CBC PLATELET MEAN VOLUME [ENTITIC VOLUME] IN BLOOD BY AUTOMATED COUNT 8.8 fL 7.5 - 11.2 11/11 Specimen Type: BLOOD No comment entered. Ordering Provider: CYNDI COLEMAN Report Released Date/Time: Nov 11, 2023 03:50 PM Reporting Lab: [facility] [place] [address] Performing Lab: [facility] CBC ERYTHROCYTE DISTRIBUTIO N WIDTH [RATIO] BY AUTOMATED COUNT 12.1 11.8 - 15.1 11/11 Specimen Type: BLOOD No comment entered. Ordering Provider: CYNDI COLEMAN Report Released Date/Time: Nov 11, 2023 03:50 PM Reporting Lab: [facility] [place] [address] Performing Lab: [facility] CBC LYMPHOCYTES /100 LEUKOCYTES IN BLOOD BY AUTOMATED COUNT 27 11/11 Specimen Type: BLOOD No comment entered. Ordering Provider: CYNDI COLEMAN Report Released Date/Time: Nov 11, 2023 03:50 PM Reporting Lab: [facility] [place] [address] Performing Lab: [facility] [id number] [place] [address] CBC MONOCYTES/1 00 LEUKOCYTES IN BLOOD BY AUTOMATED COUNT 7 11/11 Specimen Type: BLOOD No comment entered. Ordering Provider: CYNDI COLEMAN Report Released Date/Time: Nov 11, 2023 03:50 PM Reporting Lab: [facility] [place] [phone] Performing Lab: [facility] CBC NEUTROPHILS /100 LEUKOCYTES IN BLOOD BY AUTOMATED COUNT 63 11/11 Specimen Type: BLOOD No comment entered. Ordering Provider: CYNDI COLEMAN Report Released Date/Time: Nov 11, 2023 03:50 PM Reporting Lab: [facility] [address] Performing Lab: [facility] CBC EOSINOPHILS /100 LEUKOCYTES IN BLOOD BY AUTOMATED COUNT 2 11/11 Specimen Type: BLOOD No comment entered. Ordering Provider: CYNDI COLEMAN Report Released Date/Time: Nov 11, 2023 03:50 PM Reporting Lab: [facility] [address] Performing Lab: [facility] [place] [phone] CBC BASOPHILS/1 00 LEUKOCYTES IN BLOOD BY AUTOMATED COUNT 0 11/11 Specimen Type: BLOOD No comment entered. Ordering Provider: CYNDI COLEMAN Report Released Date/Time: Nov 11, 2023 03:50 PM Reporting Lab: [facility] [address] Performing Lab: [facility] CBC LYMPHOCYTES [#/VOLUME] IN BLOOD BY AUTOMATED COUNT 2.06 10*3/uL 0.77 - 4.50 11/11 Specimen Type: BLOOD No comment entered. Ordering Provider: CYNDI COLEMAN Report Released Date/Time: Nov 11, 2023 03:50 PM Reporting Lab: [facility] [place] [address] Performing Lab: [facility] CBC MONOCYTES [#/VOLUME] IN BLOOD BY AUTOMATED COUNT 0.52 10*3/uL 0.19 - 0.80 11/11 Specimen Type: BLOOD No comment entered. Ordering Provider: CYNDI COLEMAN Report Released Date/Time: Nov 11, 2023 03:50 PM Reporting Lab: [facility] [place] [address] Performing Lab: [facility] CBC NEUTROPHILS [#/VOLUME] IN BLOOD BY AUTOMATED COUNT 4.72 10*3/uL 2.10 - 8.00 11/11 Specimen Type: BLOOD No comment entered. Ordering Provider: CYNDI COLEMAN Report Released Date/Time: Nov 11, 2023 03:50 PM Reporting Lab: [facility] [place] [address] Performing Lab: [facility] CBC EOSINOPHILS [#/VOLUME] IN BLOOD BY AUTOMATED COUNT 0.16 10*3/uL 0.00 - 0.60 11/11 Specimen Type: BLOOD No comment entered. Ordering Provider: CYNDI COLEMAN Report Released Date/Time: Nov 11, 2023 03:50 PM Reporting Lab: [facility] [place] [address] Performing Lab: [facility] CBC BASOPHILS [#/VOLUME] IN BLOOD BY AUTOMATED COUNT 0.03 10*3/uL 0.00 - 0.20 11/11 Specimen Type: BLOOD No comment entered. Ordering Provider: CYNDI COLEMAN Report Released Date/Time: Nov 11, 2023 03:50 PM Reporting Lab: [facility] [place] [address] Performing Lab: [facility] COMPREHEN SIVE METABOLIC PANEL CREATININE [MASS/VOLUM E] IN SERUM OR PLASMA 0.93 mg/dL 0.70 - 1.30 11/11 Specimen Type: PLASMA Comment: No hemolysis noted. Ordering Provider: CYNDI COLEMAN Report Released Date/Time: Nov 11, 2023 03:50 PM Reporting Lab: [facility] [place] [address] Performing Lab: [facility] COMPREHEN SIVE METABOLIC PANEL UREA NITROGEN [MASS/VOLUM E] IN SERUM OR PLASMA 12.8 mg/dL 9.0 - 25.0 11/11 Specimen Type: PLASMA Comment: No hemolysis noted. Ordering Provider: CYNDI COLEMAN Report Released Date/Time: Nov 11, 2023 03:50 PM Reporting Lab: [facility] [place] [address] Performing Lab: [facility] COMPREHEN SIVE METABOLIC PANEL GLUCOSE [MASS/VOLUM E] IN SERUM OR PLASMA 120 mg/dL 72 - 99 11/11 H Specimen Type: PLASMA Comment: No hemolysis noted. Ordering Provider: CYNDI COLEMAN Report Released Date/Time: Nov 11, 2023 03:50 PM Reporting Lab: [facility] [phone] Performing Lab: [facility] COMPREHEN SIVE METABOLIC PANEL SODIUM [MOLES/VOLU ME] IN SERUM OR PLASMA 139 meq/L 136 - 145 11/11 Specimen Type: PLASMA Comment: No hemolysis noted. Ordering Provider: CYNDI COLEMAN Report Released Date/Time: Nov 11, 2023 03:50 PM Reporting Lab: [facility] [place] [phone] Performing Lab: [facility] COMPREHEN SIVE METABOLIC PANEL POTASSIUM [MOLES/VOLU ME] IN SERUM OR PLASMA 4.1 meq/L 3.5 - 5.0 11/11 Specimen Type: PLASMA Comment: No hemolysis noted. Ordering Provider: CYNDI COLEMAN Report Released Date/Time: Nov 11, 2023 03:50 PM Reporting Lab: [facility] [place] [address] Performing Lab: [facility] [place] [phone] [address] COMPREHEN SIVE METABOLIC PANEL CHLORIDE [MOLES/VOLU ME] IN SERUM OR PLASMA 105 meq/L 98 - 107 11/11 Specimen Type: PLASMA Comment: No hemolysis noted. Ordering Provider: CYNDI COLEMAN Report Released Date/Time: Nov 11, 2023 03:50 PM Reporting Lab: [facility] [place] [address] Performing Lab: [facility] COMPREHEN SIVE METABOLIC PANEL CARBON DIOXIDE, TOTAL [MOLES/VOLU ME] IN SERUM OR PLASMA 26 meq/L 22 - 31 11/11 Specimen Type: PLASMA Comment: No hemolysis noted. Ordering Provider: CYNDI COLEMAN Report Released Date/Time: Nov 11, 2023 03:50 PM Reporting Lab: [facility] [place] [address] Performing Lab: [facility] COMPREHEN SIVE METABOLIC PANEL CALCIUM [MASS/VOLUM E] IN SERUM OR PLASMA 9.4 mg/dL 8.4 - 10.4 11/11 Specimen Type: PLASMA Comment: No hemolysis noted. Ordering Provider: CYNDI COLEMAN Report Released Date/Time: Nov 11, 2023 03:50 PM Reporting Lab: [facility] [place] [address] Performing Lab: [facility] COMPREHEN SIVE METABOLIC PANEL PROTEIN [MASS/VOLUM E] IN SERUM OR PLASMA 7.4 g/dL 6.0 - 8.6 11/11 Specimen Type: PLASMA Comment: No hemolysis noted. Ordering Provider: CYNDI COLEMAN Report Released Date/Time: Nov 11, 2023 03:50 PM Reporting Lab: [facility] [place] [address] Performing Lab: [facility] COMPREHEN SIVE METABOLIC PANEL ALBUMIN [MASS/VOLUM E] IN SERUM OR PLASMA 4.2 g/dL 3.4 - 5.0 11/11 Specimen Type: PLASMA Comment: No hemolysis noted. Ordering Provider: CYNDI COLEMAN Report Released Date/Time: Nov 11, 2023 03:50 PM Reporting Lab: [facility] [place] [address] Performing Lab: [facility] COMPREHEN SIVE METABOLIC PANEL BILIRUBIN.T OTAL [MASS/VOLUM E] IN SERUM OR PLASMA 0.5 mg/dL 0.2 - 1.2 11/11 Specimen Type: PLASMA Comment: No hemolysis noted. Ordering Provider: CYNDI COLEMAN Report Released Date/Time: Nov 11, 2023 03:50 PM Reporting Lab: [facility] [place] [address] Performing Lab: [facility] COMPREHEN SIVE METABOLIC PANEL ALKALINE PHOSPHATASE [ENZYMATIC ACTIVITY/VO LUME] IN SERUM OR PLASMA 69 U/L 40 - 150 11/11 Specimen Type: PLASMA Comment: No hemolysis noted. Ordering Provider: CYNDI COLEMAN Report Released Date/Time: Nov 11, 2023 03:50 PM Reporting Lab: [facility] [place] [address] Performing Lab: [facility] COMPREHEN SIVE METABOLIC PANEL ASPARTATE AMINOTRANSF ERASE [ENZYMATIC ACTIVITY/VO LUME] IN SERUM OR PLASMA 19 U/L 5 - 34 11/11 Specimen Type: PLASMA Comment: No hemolysis noted. Ordering Provider: CYNDI COLEMAN Report Released Date/Time: Nov 11, 2023 03:50 PM Reporting Lab: [facility] [place] [address] Performing Lab: [facility] COMPREHEN SIVE METABOLIC PANEL ALANINE AMINOTRANSF ERASE [ENZYMATIC ACTIVITY/VO LUME] IN SERUM OR PLASMA 18 U/L 8 - 40 11/11 Specimen Type: PLASMA Comment: No hemolysis noted. Ordering Provider: CYNDI COLEMAN Report Released Date/Time: Nov 11, 2023 03:50 PM Reporting Lab: [facility] [place] [address] Performing Lab: [facility] COMPREHEN SIVE METABOLIC PANEL GLOMERULAR FILTRATION RATE/1.73 SQ M.PREDICTED [VOLUME RATE/AREA] IN SERUM, PLASMA OR BLOOD BY CREATININE- BASED FORMULA (CKD-EPI 2020) 99.41 60 11/11 Specimen Type: PLASMA Comment: No hemolysis noted. Ordering Provider: CYNDI COLEMAN Report Released Date/Time: Nov 11, 2023 03:50 PM Reporting Lab: [facility] [place] [address] Performing Lab: [facility] HGA1C HEMOGLOBIN A1C/HEMOGLO BIN.TOTAL IN BLOOD 5.9 4.0 - 6.0 11/11 Specimen Type: BLOOD No comment entered. Ordering Provider: CYNDI COLEMAN Report Released Date/Time: Nov 11, 2023 03:50 PM Reporting Lab: [facility] [place] [address] Performing Lab: [facility] TSH (MA-PB-ST L) THYROTROPIN [UNITS/VOLU ME] IN SERUM OR PLASMA 2.570 u[IU]/mL 0.470 - 5.000 11/11 Specimen Type: SERUM No comment entered. Ordering Provider: CYNDI COLEMAN Report Released Date/Time: Nov 11, 2023 03:50 PM Reporting Lab: [facility] [place] [address] Performing Lab: [facility] VITAMIN D, 25-HYDROX Y 25-HYDROXYV ITAMIN D3 [MASS/VOLUM E] IN SERUM OR PLASMA 43.3 ng/mL 30 - 96 03/08 /2024 Specimen Type: SERUM No comment entered. Ordering Provider: CYNDI COLEMAN Report Released Date/Time: Nov 11, 2023 03:50 PM Reporting Lab: [facility] [place] [phone] Performing Lab: [facility] [phone] LIPID PANEL (STL) CHOLESTEROL [MASS/VOLUM E] IN SERUM OR PLASMA 206 mg/dL 0 - 200 11/11 H Specimen Type: PLASMA Comment: No hemolysis noted. Ordering Provider: CYNDI COLEMAN Report Released Date/Time: Nov 11, 2023 03:50 PM Reporting Lab: [facility] [address] Performing Lab: [facility] LIPID PANEL (STL) TRIGLYCERID E [MASS/VOLUM E] IN SERUM OR PLASMA 71 mg/dL 0 - 150 11/11 Specimen Type: PLASMA Comment: No hemolysis noted. Ordering Provider: CYNDI COLEMAN Report Released Date/Time: Nov 11, 2023 03:50 PM Reporting Lab: [facility] [phone] Performing Lab: [facility] LIPID PANEL (STL) CHOLESTEROL IN LDL [MASS/VOLUM E] IN SERUM OR PLASMA BY CALCULATION 134 mg/dL 11/11 Specimen Type: PLASMA Comment: No hemolysis noted. Ordering Provider: CYNDI COLEMAN Report Released Date/Time: Nov 11, 2023 03:50 PM Reporting Lab: [facility] [phone] Performing Lab: [facility] [phone] [place] [address] LIPID PANEL (STL) CHOLESTEROL IN HDL [MASS/VOLUM E] IN SERUM OR PLASMA 58 mg/dL 40 11/11 Specimen Type: PLASMA Comment: No hemolysis noted. Ordering Provider: CYNDI COLEMAN Report Released Date/Time: Nov 11, 2023 03:50 PM Reporting Lab: [facility] [address] Performing Lab: [facility] [phone] [place] [address] HEP C Ab HCV Ab (STL) HEPATITIS C VIRUS AB [PRESENCE] IN SERUM Nonreacti ve 11/11 Specimen Type: SERUM No comment entered. Ordering Provider: CYNDI COLEMAN Report Released Date/Time: Nov 11, 2023 04:08 PM Reporting Lab: [address] [phone] Performing Lab: [address] [phone] [facility] Encounters Combined list of: 1) Encounters from Department of [facility] facilities going backup to the last 18 months, not all [place] inpatient encounters are included; 2) Encounters from the Department of [facility] facilities going backup to 280 months. Location Location Details Encounter Type Encounter Number Reason For Visit Attending Provider ADM Date DC Date Status Disposition Source [facility] Outpatient Encounter [id number] 06/25 [facility] Outpatient Encounter [id number] [facility] Outpatient Encounter [id number] 08/20 [facility] Outpatient Encounter [id number] USAMA MCCOLLUM 08/23 [facility] Outpatient Encounter [id number] 09/03 [facility] Outpatient Encounter [id number] 09/20 [facility] Outpatient Encounter [id number] Dev BLACK 11/02 [facility] Outpatient Encounter [id number] Diagnos is: ICD-10- CM M25.511 Pain in right shoulde r EMIGDIO NAQVI 11/03 [facility] OFFICE O/P EST MOD 30 MIN [id number] Diagnos is: ICD-10- CM J45.909 Unspeci fied asthma, uncompl icated COLE[place],AR MIDA A 11/10 [facility] Outpatient Encounter [id number] 11/21 [facility] Outpatient Encounter [id number] 12/05 [facility] COMPRE OPH EXAM NEW PT 1/ [id number] Diagnos is: ICD-10- CM H52.4 [place] UDANE Thomas 12/05 [facility] OT EVAL LOW COMPLEX 30 MIN [id number] Diagnos is: ICD-10- CM M25.511 Pain in right shoulde r CARMELAIMOROBERTA M 12/12 [facility] Outpatient Encounter [id number] DUNAE BARNEY 12/14 [facility] Outpatient Encounter [id number] 12/28 [facility] En[facility] [id number] 01/05 [facility] Outpatient Encounter [id number] 01/18 [facility] Outpatient Encounter [id number] PARRISH HENDERSON 02/27 [facility] En[facility] [id number] KIMBER DAWSON 03/10 [facility] Outpatient Encounter [id number] 11/14 [facility] Social History Combined list of available smoking, tobacco, and other social history from Department of Defense and [facility] facilities. Social History Type Response Date Comment Sourc e Tobacco smoking status NHIS VA-TOBACCO FORMER USER 04/21/2023 [facility] History of tobacco use SC-TOBACCO QUIT < 1 YEAR 04/21/2023 [facility] Plan of Care List of future care activities from Department of [facility] facilities. Additional future care activities may be listed in the Assessment and Plan section. Date/Time Care Activity Care Activity Detail Facili ty 01/03/2025 AMBULATORY - MEDICINE AMBULATORY - MEDICI NE [facility]
--- OUTSIDE RECORDS SUMMARY | 2024-12-13 15:28 | XMS_ITS | Referral Summary ---
Author Organization [facility] Medical Office Building [address] Address [address] [place] [address] Care Team Providers Care Composition Molder Name Role Phone Dustin Patricia Nilda PROMOTIONS DIRECTOR Primary Care Provider + Encounters Date Type Department Care Team Description 12/05/2024 Orders Only [facility] Pulmonary at [address] [place] [phone] Kori Ruano NP 10/02/2024 1:30 PM WOOD CARVER Office Visit [facility] Pulmonary at [address] [place] [phone] Kori Ruano NP COPD exacerbation (HCC) (Primary Dx); Asthma-COPD overlap syndrome (HCC); Nicotine dependence, cigarettes, in remission from Last 3 Months Allergies Active Allergy Reactions Criticality Noted Date Comments Atorvastatin Hives Medium 08/25/2023 Medications albuterol 2.5 mg/0.5 mL solution for nebulization Take 0.5 mL (2.5 mg total) by nebulization 3 (three) times a day Active albuterol HFA (PROVENTIL HFA,VENTOLIN HFA,PROAIR HFA) 90 mcg/actuation inhaler Inhale 2 puffs every 4 (four) hours as needed for wheezing Active lisinopriL (PRINIVIL,ZESTRI L) 10 mg tablet Take 1 tablet (10 mg total) by mouth daily Active montelukast (SINGULAIR) 10 mg tablet Take 1 tablet (10 mg total) by mouth nightly Active omeprazole (PriLOSEC) 40 mg capsule Take 1 capsule (40 mg total) by mouth daily Active escitalopram (LEXAPRO) 10 mg tablet Take 1 tablet (10 mg total) by mouth daily Active Breyna 160-4.5 mcg/actuation inhaler Inhale 2 puffs 2 (two) times a day Active fluticasone propionate (FLONASE) 50 mcg/actuation nasal sprayIndications :Non-seasonal allergic rhinitis, unspecified trigger Administer 2 sprays into each nostril daily 16 g 3 11/17/19 25 025 Active fluticasone propionate (FLONASE) 50 mcg/actuation nasal spray Administer 1 spray into each nostril daily 025 Discontin ued(Dupli swapnil order) fluticasone propionate (FLONASE) 50 mcg/actuation nasal sprayIndications :Non-seasonal allergic rhinitis, unspecified trigger Administer 2 sprays into each nostril daily 16 g 11 02/28/20 24 025 Discontin ued(Reord er) Active Problems Problem Noted Date Diagnosed Date COPD exacerbation 10/02/2024 Assessment & Plan (10/02/2024 2:35 PM WOOD CARVER): This is his second exacerbation since his Breztri was denied He will start steroids and antibiotics today as his symptoms have been persistent for 3 weeks Continue saline nasal rinses and intranasal steroids Continue montelukast and Zyrtec He is aware of signs and symptoms that are emergently reportable Nicotine dependence, cigarettes, in remission Assessment & Plan (10/02/2024 2:33 PM WOOD CARVER): He is overdue for annual lung cancer screening I have ordered this today when he will inform the office if he is not scheduled promptly Assessment & Plan (02/28/2024 8:27 PM CDT): Quit in 2021 Due for annual lung cancer screening in September 2024 Asthma-COPD overlap syndrome 08/25/2023 Assessment & Plan (10/02/2024 2:32 PM WOOD CARVER): Continue Breyna twice daily This lends inferior clinical benefit as compared to Breztri and I strongly recommend he remain on triple therapy He has had two exacerbations since he has been on alternate maintenance inhaled therapy. I have given him 3 samples today and he is aware of use and technique. Unfortunately he is on a federal insurance plan so no coupon will apply to him. We will attempt to contact the [place] again for coverage options. Albuterol as needed only, discussed indications for use He was aware signs and symptoms that would require earlier evaluation or change to his plan of care Assessment & Plan (02/28/2024 8:25 PM CDT): Continue Breyna twice daily, although this lends inferior clinical benefit as compared to Breztri I will send RX to the [place] pharmacy today in an attempt to get this covered. Albuterol as needed only, discussed indications for use Tinea cruris 08/25/2023 12/21/2017 Hyperlipidemia 08/25/2023 Hyperkalemia 08/25/2023 Iron deficiency anemia 08/25/2023 2 Anxiety 08/25/2023 03/31/2023 Tobacco user 08/25/2023 12/29/1916 Visual disturbance 08/25/2023 10/20/2022 Excessive cerumen in ear canal 08/25/2023 Essential hypertension 08/25/2023 Raynaud's disease 08/25/2023 Polyp of nasal cavity 08/25/2023 01/09/2023 Polyp of nasal sinus 08/25/2023 11/20/2022 Allergic rhinitis 08/25/2023 01/01/2023 Assessment & Plan (02/28/2024 8:28 PM CDT): Continue fluticasone nasal spray daily, RX sent today Saline nasal rinses GERD (gastroesophageal reflux disease) 3 03/31/2023 Assessment & Plan (02/28/2024 8:23 PM CDT): Continue omprazole 40mg daily Avoid trigger foods No eating 2-3 hours before bed Elevate head of bed while sleeping. Staphylococcal infection of skin 08/25/2023 Plantar fasciitis 08/25/2023 12/29/2016 Nocturnal dyspnea 08/25/2023 10/20/2022 Wheezing 08/25/2023 10/20/2022 Chronic cough 08/25/2023 11/18/2022 Chest pain 08/25/2023 Nausea 08/25/2023 03/31/2023 Abdominal bloating 08/25/2023 03/31/2023 Strain of neck muscle 08/25/2023 05/01/2022 History of adenomatous polyp of colon 08/25/2023 05/03/2019 COVID-19 08/25/2023 04/15/2022 Serum iron raised 08/25/2023 06/01/2023 Social History Tobacco Use Types Packs/Day Years Used Date Smoking Tobacco: Former Cigarettes 1 30 1 10/1991 - 08/2022 Smokeless Tobacco: Never Tobacco Cessation:Counseling Given: Not Answered AUDIT-C Answer Date Recorded Q1: How often do you have a drink containing alcohol? 4 or more times a week 08/25/2023 Q2: How many drinks containi ng alcohol do you have on a typical day when you are drinking? 7 to 9 Q3: How often do you have si x or more drinks on one occasion? Daily or almost daily 08/25/2023 Sex and Gender Information Value Date Recorded Sex Assigned at Not on file Legal Sex Male 10:30 AM WOOD CARVER Gender Identity Not on file Sexual Orientation Not on file Last Filed Vital Signs Vital Sign Reading Time Taken Comments Blood Pressure 150/80 10/02/2024 1:04 PM WOOD CARVER Pulse 114 10/02/2024 1:04 PM WOOD CARVER Temperature 37.5 C (99.5 F) 10/02/2024 1:04 PM WOOD CARVER Respiratory Rate 18 10/02/2024 1:04 PM WOOD CARVER Oxygen Saturation 99% 10/02/2024 1:04 PM WOOD CARVER Inhaled Oxygen Concentration - - Weight 89.7 kg (197 lb 11.2 oz) 10/02/2024 1:04 PM WOOD CARVER Height 185.4 cm (6' 1 ) 10/02/2024 1:04 PM WOOD CARVER Body Mass Index 26.08 10/02/2024 1:04 PM WOOD CARVER Plan of Treatment Not on file Procedures Procedure Name Priority Date/Time Associated Diagnosis Comments CT LUNG CANCER SCREENING Schedule Routine, Read Routine (OP Routine) 09/22/2023 7:09 AM WOOD CARVER Nicotine dependence, cigarettes, in remission from Last 3 Months or Most Recently Relevant to Health Maintenance Results * CT Lung Cancer Screening (09/22/2023 7:09 AM WOOD CARVER) Anatomical Region Laterality Modality Chest N/A Computed Tomogra phy 09/22/2023 7:43 AM WOOD CARVER Narrative 09/22/2023 7:48 AM WOOD CARVER EXAM DESCRIPTION: CT LUNG CANCER SCREENING REASON FOR STUDY: Screening CT of the chest in a former smoker with a 50 pack year smoking history. Additional history: None. TECHNIQUE: Low dose CT scan of the chest was performed without intravenous contrast using helical scanning technique. The exam extends from the lung apices through the lung bases. Automatic exposure control was used as a dose optimization technique. NOTE: This study was performed for the specific purposes of lung cancer screening and is not an alternative to diagnostic chest CT. RADIATION DOSE: CT dose index volume (CTDIvol) = 2.4 mGy COMPARISON: None FINDINGS: SMOKING RELATED LUNG DISEASE: There are minimal to mild emphysematous changes of lungs with scattered mild subsegmental atelectasis and scarring. There is no definite evidence of a pneumothorax. The central airways are grossly patent. There is scattered mild bronchial wall thickening, which is likely related to mild chronic bronchitis/bronchiolitis. There is no definite evidence of focal consolidation or pleural effusion. LUNG NODULES: There are few scattered tiny pulmonary nodules noted. For example, there is a 0.2 cm subpleural right middle lobe pulmonary nodule abutting the right minor fissure (axial image 139). CORONARY ARTERY CALCIFICATION: Not identified. OTHER: The heart size is normal. There is no definite evidence of a pericardial effusion. There is no definite CT evidence of mediastinal, hilar, or axillary lymphadenopathy. There are scattered subcentimeter mediastinal lymph nodes noted with the largest measuring 0.6 cm in the precarinal region (axial image 119). There is a small hiatal hernia. There is nonspecific nodular thickening of the bilateral adrenal glands. There are degenerative changes of the spine. IMPRESSION: Few scattered tiny pulmonary nodules with the largest measuring 0.2 cm. Minimal to mild emphysematous changes of lungs with scattered mild subsegmental atelectasis and scarring. Scattered mild bronchial wall thickening, which is likely related to mild chronic bronchitis/bronchiolitis. Lung-RADS category 2: Benign appearance or behavior. Recommendation: Low dose Screening CT of chest in 12 months. THIS IS AN ELECTRONICALLY VERIFIED FINAL REPORT 09/22/2023 7:48 AM - Electronically signed by Mykel Castillo D.O. PS: PS Report ID: [id number] Reading Location: [place] [address] Procedure Note Mykel Castillo, DO - 09/22/2023 EXAM DESCRIPTION: CT LUNG CANCER SCREENING REASON FOR STUDY: Screening CT of the chest in a former smoker with a50 pack year smoking history. Additional history: None. TECHNIQUE: Low dose CT scan of the chest was performed without intravenous contrast using helical scanning technique. The exam extends from the lung apices through the lung bases. Automatic exposure control was used as adose optimization technique. NOTE: This study was performed for the specific purposes of lung cancer screening and is not an alternative to diagnostic chest CT. RADIATION DOSE: CT dose index volume (CTDIvol) = 2.4 mGy COMPARISON: None FINDINGS: SMOKING RELATED LUNG DISEASE: There are minimal to mild emphysematous changes of lungs with scattered mild subsegmental atelectasis andscarring. There is no definite evidence of a pneumothorax. The central airways are grossly patent. There is scattered mild bronchial wall thickening, whichis likely related to mild chronic bronchitis/bronchiolitis. There is nodefinite evidence of focal consolidation or pleural effusion. LUNG NODULES: There are few scattered tiny pulmonary nodules noted. For example, there is a 0.2 cm subpleural right middle lobe pulmonary nodule abutting the right minor fissure (axial image 139). CORONARY ARTERY CALCIFICATION: Not identified. OTHER: The heart size is normal. There is no definite evidence of a pericardial effusion. There is no definite CT evidence of mediastinal, hilar, or axillary lymphadenopathy. There are scattered subcentimeter mediastinal lymphnodes noted with the largest measuring 0.6 cm in the precarinal region (axialimage 119). There is a small hiatal hernia. There is nonspecific nodular thickeningof the bilateral adrenal glands. There are degenerative changes of the spine. IMPRESSION: Few scattered tiny pulmonary nodules with the largest measuring 0.2 cm. Minimal to mild emphysematous changes of lungs with scattered mild subsegmental atelectasis and scarring. Scattered mild bronchial wall thickening, which is likely related to mild chronic bronchitis/bronchiolitis. Lung-RADS category 2: Benign appearance or behavior. Recommendation: Low dose Screening CT of chest in 12 months. THIS IS AN ELECTRONICALLY VERIFIED FINAL REPORT 09/22/2023 7:48 AM - Electronically signed by Mykel Castillo D.O. PS: PS Report ID: [id number] Reading Location: [id number] Luther Solis MD IMG CT PROCEDURES Final Result from Last 3 Months or Most Recently Relevant to Health Maintenance Insurance [facility] [employer] Care Teams Composition Molder Relationship Specialty Start Date End Date Patricia Chan NP PCP - General Nurse Practitioner 08/24/23
--- OUTSIDE RECORDS SUMMARY | 2024-12-13 15:28 | XMS_ITS | Clinical Summary ---
Author Organization [facility] Medical Office Building B Address [address] [place] [address] Care Team Providers Care Roller Bearing Inspector Name Role Phone Patricia Chan LIVESTOCK TRADER Primary Care Provider + Allergies Active Allergy Reactions Criticality Noted Date [...] nostril daily 16 g 3 11/17/19 25 12/16/ 025 Active fluticasone propionate (FLONASE) 50 mcg/actuation nasal spray Administer 1 spray into each nostril daily 025 Discontin ued(Dupli swapnil order) fluticasone propionate (FLONASE) 50 mcg/actuation nasal sprayIndications :Non-seasonal allergic rhinitis, unspecified trigger Administer 2 sprays into each nostril daily 16 g 11 02/28/20 025 Discontin ued(Reord er) Active Problems Problem Noted Date Diagnosed Date COPD exacerbation 10/02/2024 Assessment & Plan (10/02/2024 2:35 PM CONSTRUCTION RECRUITER): This is his second exacerbation since his Breztri was denied He will start steroids and antibiotics today as his symptoms have been persistent for 3 weeks Continue saline nasal rinses and intranasal steroids Continue montelukast and Zyrtec He is aware of signs and symptoms that are emergently reportable Nicotine dependence, cigarettes, in remission Assessment & Plan (10/02/2024 2:33 PM CONSTRUCTION RECRUITER): He is overdue for annual lung cancer screening I have ordered this today when he will inform the office if he is not scheduled promptly Assessment & Plan (02/28/2024 8:27 PM CDT): Quit in 2021 Due for annual lung cancer screening in September 2024 Asthma-COPD overlap syndrome 08/25/2023 Assessment & Plan (10/02/2024 2:32 PM CONSTRUCTION RECRUITER): Continue Breyna twice daily This lends inferior [...] him. [facility]. Albuterol as needed only, discussed indications for use He was aware signs and symptoms that would require earlier evaluation or change to his plan of care Assessment & Plan (02/28/2024 8:25 PM CDT): Continue Breyna twice daily, although this lends inferior clinical benefit as compared to Breztri I will send RX to the [place] pharmacy today in an attempt to get this covered. Albuterol as needed only, discussed indications for use Tinea cruris 08/25/2023 12/21/2017 Hyperlipidemia 08/25/2023 Hyperkalemia 08/25/2023 Iron deficiency anemia 08/25/2023 Anxiety 08/25/2023 03/31/2023 Tobacco user 08/25/2023 12/29/1916 Visual disturbance 08/25/2023 10/20/2022 Excessive cerumen in ear canal 08/25/2023 Essential hypertension 08/25/2023 Raynaud's disease 08/25/2023 Polyp of nasal cavity 08/25/2023 01/09/2023 Polyp of nasal sinus 08/25/2023 11/20/2022 Allergic rhinitis 08/25/2023 01/01/2023 Assessment & Plan (02/28/2024 8:28 PM CDT): Continue fluticasone nasal spray daily, RX sent today Saline nasal rinses GERD (gastroesophageal reflux disease) 03/31/2023 Assessment & Plan (02/28/2024 8:23 PM [...] 08/25/2023 04/15/2022 Serum iron raised 08/25/2023 06/01/2023 Encounters Date Type Department Care Team Description 12/05/2024 Orders Only [facility] Pulmonary at [address] [place] [phone] Kori Ruano NP 10/02/2024 1:30 PM CONSTRUCTION RECRUITER Office Visit [facility] Pulmonary at [address] [place] [phone] Kori Ruano NP COPD exacerbation (HCC) (Primary Dx); Asthma-COPD overlap syndrome (HCC); Nicotine dependence, cigarettes, in remission from Last 3 Months Surgical History Surgery Date Site/Laterality Comments TONSILLECTOMY COLONOSCOPY 04/15/2022 Medical History Medical History Date Comments Asthma Diverticulitis Anemia Cigarette nicotine dependence in remission 02/27 COPD exacerbation (HCC) 10/02/2024 Family History Medical History Relation Name Comments Hypertension Father Hypertension Mother Relation Name Status Comments Father Mother Social History Tobacco Use Types Packs/Day Years Used Date Smoking Tobacco: Former Cigarettes 30 1 10/1991 - 08/2022 Smokeless Tobacco: [...] on file Legal Sex Male 10:30 AM CONSTRUCTION RECRUITER Gender Identity Not on file Sexual Orientation Not on file Obstetrics History Last Filed Vital Signs Vital Sign Reading Time Taken Comments Blood Pressure 150/80 10/02/2024 1:04 PM CONSTRUCTION RECRUITER Pulse 114 10/02/2024 1:04 PM CONSTRUCTION RECRUITER Temperature 37.5 C (99.5 F) 10/02/2024 1:04 PM CONSTRUCTION RECRUITER Respiratory Rate 18 10/02/2024 1:04 PM CONSTRUCTION RECRUITER Oxygen Saturation 99% 10/02/2024 1:04 PM CONSTRUCTION RECRUITER Inhaled Oxygen Concentration - - Weight 89.7 kg (197 lb 11.2 oz) 10/02/2024 1:04 PM CONSTRUCTION RECRUITER Height 185.4 cm (6' 1 ) 10/02/2024 1:04 PM CONSTRUCTION RECRUITER Body Mass Index 26.08 10/02/2024 1:04 PM CONSTRUCTION RECRUITER Plan of Treatment Health Maintenance Due Date Last Done Comments Colon Cancer Screening-Colonoscopy 1972 Depression Screening 1972 Hepatitis C Screening 1972 Prostate Cancer Screening-PSA 1972 Hepatitis B Screening 1990 Regular Well Visit/Exam 18-64 1990 DTaP/Tdap/Td Vaccine (2 - Td or Tdap) 02/20/2018 02/21/2008, 12/13/1999, 12/10/1989, Additional history exists Zoster Vaccine (1 of 2) 2022 Pneumococcal vaccine <65 (2 of 2 - PCV) 04/26/2024 04/26/2023 Lung Cancer Screening 09/22/2024 09/22/2023 Influenza Vaccine (Season Ended) 2025 08/05/2019, 08/05/2019, 07/16/2018, Additional history exists Procedures Procedure Name Priority Date/Time Associated Diagnosis Comments CT LUNG CANCER SCREENING Schedule Routine, Read Routine (OP Routine) 09/22/2023 7:09 AM CONSTRUCTION RECRUITER Nicotine dependence, cigarettes, in remission from Last 3 Months or Most Recently Relevant to Health Maintenance Results * CT Lung Cancer Screening (09/22/2023 7:09 AM CONSTRUCTION RECRUITER) Anatomical Region Laterality Modality Chest N/A Computed Tomogra phy 09/22/2023 7:43 AM CONSTRUCTION RECRUITER Narrative 09/22/2023 7:48 AM CONSTRUCTION RECRUITER EXAM DESCRIPTION: CT LUNG CANCER SCREENING REASON [...] Mykel Castillo D.O. PS: PS Report ID: [id number] Reading Location: [place] [address] Procedure Note Mykel Castillo, - 09/22/2023 EXAM DESCRIPTION: CT LUNG CANCER [...] Mykel Castillo D.O. PS: PS Report ID: [id number] Reading Location: [place] [address] Luther Solis MD [facility] CT PROCEDURES Final Result from Last 3 Months or Most Recently Relevant to Health Maintenance Insurance [employer] Member Subscriber Plan / Payer (Ef fective 2007-Present) Name:Luther Palencia Relation to Subscriber:Self Name:Luther Palencia Payer ID:[id number] (NAIC) Group ID:[id number] Type:[employer] Address: [facility] [id number] [place] [id number] Care Teams Roller Bearing Inspector Relationship Specialty Start Date End Date Patricia Chan NP PCP - General Nurse Practitioner 08/24/23
--- OUTSIDE RECORDS SUMMARY | 2024-12-13 15:29 | XMS_ITS ---
Author Organization [facility] Address [address] [place] [address] Care Team Providers Care Foot Piece Assembler Name Role Phone Patricia Boyle Primary Care Provider Laverne Kushal Morel Unavailable [phone] ZZ-Migration, Provider Unavailable Unavailab le REASON FOR VISIT [facility] To [facility] Conversion Encounter Medications Medication SIG (Take, Route, Frequency, Duration) Notes Start Date End Date Status Fluticasone Propionate 50 MCG/ACT 2 spray(s) in each nostril BID Active Omeprazole 40 mg daily *Please review and pick correct strength-formulati on from [facility] options. If intended option is not shown, discontinue and re-order from Quick Search* Active Singulair 10 MG 1 tab(s) orally once a day 10mg daily Active Lisinopril 10mg daily *Plea se review and pick correct strength-formulati on from [facility] options. If intended option is not shown, discontinue and re-order from Quick Search* Active ALBUTEROL (EQV-PROAIR HFA) 90 MCG/INH 2 PUFF(S) INHALED EVERY 6 HOURS *Please review for potential replacement for e-prescription and drug interaction check* 04/26/2023 Active Breztri Aerosphere 160 MCG-4.8 MCG-9 MCG/INH 2 PUFF(S) INHALED 2 TIMES A DAY 2 puffs bid *Please review and pick correct strength-formulati on from [facility] options. If intended option is not shown, discontinue and re-order from Quick Search* Active D 2000 IU 50 MCG 1 TAB(S) ORALLY ONCE A DAY for 30 DAY(S) *Please review for potential replacement for e-prescription and drug interaction check* 04/26/2023 Active Flonase Allergy Relief 50 MCG/ACT 2 spray(s) intranasally (avoid nasal septum) bid Active EpiPen 2-Nj 0.3 MG/0.3ML as directed intramuscularly once for 30 days 04/26/2023 Active NASAL WASHES N/A DIRECTED INTRANASALLY NEEDED for 30 *Please review for potential replacement for e-prescription and drug interaction check* Active Cetirizine HCl 10 MG 1 tab(s) orally once a day for 30 days Active Encounters Encounter Location Date Provider Diagnosis BYRON Cunningham [address] [place] [id number] 02/19/2024 Provider [place] Nasal polyp, unspecified J33.9 ; Moderate persistent asthma, uncomplicated J45.40 ; Allergic rhinitis due to pollen J30.1 and Chronic sinusitis, unspecified J32.9 Assessments Encounter Date Diagnosis (ICD Code) Assessment Notes Treatment Notes Treatment Clinical Notes Section Notes 02/19/2024 Nasal polyp, unspecified (ICD-10 - J33.9) 02/19/2024 Moderate persistent asthma, uncomplicated (ICD-10 - J45.40) 02/19/2024 Allergic rhinitis due to pollen (ICD-10 - J30.1) 02/19/2024 Chronic sinusitis, unspecified (ICD-10 - J32.9) Plan Of Treatment Medication Medication Name Sig Start Date Stop Date Notes Fluticasone Propionate 50 MCG/ACT 2 spray(s) in each nostril BID Singulair 10 MG 1 tab(s) orally once a day 10mg daily ALBUTEROL (EQV-PROAIR HFA) 90 MCG/INH 2 PUFF(S) INHALED EVERY 6 HOURS 04/26/2023 *Please review for potential replacement for e-prescription and drug interaction check* Breztri Aerosphere 160 MCG-4.8 MCG-9 MCG/INH 2 PUFF(S) INHALED 2 TIMES A DAY 2 puffs bid *Please review and pick correct strength-formulation from [employer] options. If intended option is not shown, discontinue and re-order from Quick Search* D 2000 IU 50 MCG 1 TAB(S) ORALLY ONCE A DAY for 30 DAY(S) 04/26/2023 *Please review for potential replacement for e-prescription and drug interaction check* EpiPen 2-Nj 0.3 MG/0.3ML as directed intramuscularly once for 30 days 04/26/2023 NASAL WASHES N/A DIRECTED INTRANAS ALLY NEEDED for 30 *Please review for potential replacement for e-prescription and drug interaction check* Cetirizine HCl 10 MG 1 tab(s) orally onc e a day for 30 days Progress Notes * NICKIE LutherDOB:1970 (54 yo M)Acc No.[id number]:02/19/2024 Patient: Luther AYOUB Provider: Javy jama Migration :1970 A ge:53 Y S ex:Male Date:02/19/2024 Address:[address] [place], [place] [id number] Pcp:JENNIFER Fernando Subjective: * Chief Complaints: * 1 . [facility] Conversion Encounter. * Medical History: * Medications: T aking Flonase Allergy Relief 50 MCG/ACT Suspension 2 spray(s) intranasally (avoid nasal septum) bid , Taking Omeprazole , Notes to Pharmacist: 40 mg daily *Please review and pick correct strength-formulation from [employer] options. If intended option is not shown, discontinue and re-order from Quick Search*, Taking Lisinopril , Notes to Pharmacist: 10mg daily *Please review and pick correct strength- formulation from [employer] options. If intended option is not shown, discontinue and re-order from Quick Search* Objective: * Vitals: Assessment: * Assessment: 1. N joanna polyp, unspecified - J33.9 (Primary) 2 . M oderate persistent asthma, uncomplicated - J45.40 3 . A llergic rhinitis due to pollen - J30.1 ? 4 . C hronic sinusitis, unspecified - J32.9 Plan: * Treatment: 2. M oderate persistent asthma, uncomplicated Continue Breztri Aerosphere AEROSOL, 160 MCG-4.8 MCG-9 MCG/INH, 2 PUFF(S), INHALED, 2 TIMES A DAY, Notes to Pharmacist: 2 puffs bid *Please review and pick correct strength-formulation from [employer] options. If intended option is not shown, discontinue and re-order from Quick Search*; C ontinue Singulair Tablet, 10 MG, 1 tab(s), orally, once a day, Notes to Pharmacist: 10mg daily; C ontinue ALBUTEROL (EQV-PROAIR HFA) AEROSOL, 90 MCG/INH, 2 PUFF(S), INHALED, EVERY 6 HOURS, Notes to Pharmacist: *Please review for potential replacement for e-prescription and drug interaction check*. 3. A llergic rhinitis due to pollen Continue Cetirizine HCl Tablet, 10 MG, 1 tab(s), orally, once a day, 30 days, 30, Refills 0; C ontinue NASAL WASHES 1 QUART OF STERILIZED TAP WATER OR DISTILLED WATER, 1 TSP NACL, 1 PINCH OF BAKING SODA, N/A, DIRECTED, INTRANASALLY, NEEDED, 30, QS, Refills PRN, Notes to Pharmacist: *Please review for potential replacement for e-prescription and drug interaction check*. 4. C hronic sinusitis, unspecified Start D 2000 IU TABLET, 50 MCG, 1 TAB(S), ORALLY, ONCE A DAY, 30 DAY(S), 30, Notes to Pharmacist: *Please review for potential replacement for e-prescription and drug interaction check*. * Billing Information: * Visit Code: * Procedure Codes: * Electronic signature of Garry SANABRIA-Migration on 12/13/2024 at 03:28 PM CDT Sign off status: Pending * Provider: Javy jama Migration Date: 0 02/19/2024 Generated for Josiane taylor/Eevlyn/Tita on: 0 12/13/2024 03:28 PM CDT
--- OUTSIDE RECORDS SUMMARY | 2024-12-13 15:29 | XMS_ITS ---
Author Name [facility] [facility] [place] Address [address] [place] [address] Care Team Providers Care Venue Coordinator Name Role Phone NAEEM COLEMAN Primary Care Provider Unavailabl e Insurance Providers: All historical and current Section Date Range: From patient's date of to the date document was created. This section includes the names of all active insurance providers for the patient. Insurance Provider Type of Coverage Plan Name Start of Policy Coverage End of Policy Coverage Group Number Member ID Insurance Provider's Telephone Number Policy Ferguson's Name Patient's Relationship to Policy Ferguson [place] PREFERRED PROVIDER ORGANIZAT ION (PPO) FEP BASIC FAM Feb 27, 2007 [id number] [phone] BELL FU JR PATIENT [place] PREFERRED PROVIDER ORGANIZAT ION (PPO) F[place] BASIC FAM Feb 27, 2007 [id number] [phone] BELL FU JR PATIENT [place] PREFERRED PROVIDER ORGANIZAT ION (PPO) FEP BASIC FAM Feb 27, 2007 [id number] [phone] BELL FU JR PATIENT [place] PREFERRED PROVIDER ORGANIZAT ION (PPO) FEP BASIC FAM Feb 27, 2007 [id number] [phone] BELL FU JR PATIENT [place] FEP ([id number]) PRESCRIPT ION FEPRX Feb 27, 2007 [id number] [phone] BELL FU JR PATIENT Selected Encounter This section includes the information on record at [place] for the Encounter. Date/Time Encounter Type Encounter Description Reason Provider Source Feb 28, 2024 03:45 PM Outpatient Encounter ADMIN PAT ACTIVTIES (MASNONCT) CHENTE HENDERSON Coy Encounter Template Text not used by [facility] Encounter Notes: All associated encounter notes This section contains the clinical notes associated to the Encounter. Date/Time Encounter Note(s) Provider Source Mar 01, 2024 05:03 PM ADDENDUM: LOCAL TITLE: Addendum STANDARD TITLE: ADDENDUM DATE OF NOTE: MAR 01, 2024@17:03:04 ENTRY DATE: MAR 01, 2024@17:03:05 AUTHOR: NAEEM COLEMAN COSIGNER: URGENCY: STATUS: COMPLETED pls let pt know that [place] pharmacy reviewed this request for Breztri in July 2023 and was not approved. Alternative inhalers I can order at [place] pharmacy is WIxela ( steroid inhaler ) and Spiriva . These 2 inhalers will replace Breztri , if he would like inhaler prescription from [place] pharmacy. /kole/ NAEEM COLEMAN MD Signed: 03/01/2024 17:04 Receipt Acknowledged By: 03/10/2024 08:10 /es/ ALEA DAWSONTAG MARKER REGISTERED NURSE ====== --- Original Document --- 02/28/24 PHARMACY COMMUNITY CARE PRESCRIPTION PROCESSING NOTE STL: Pharmacy service received prescription(s) via: Inbound ERx ELIGIBILITY: Pharmacy service cannot accept this prescription because the patient is not CCN (Care in the Community) eligible. PRESCRIPTION INFORMATION: Provider Information:[address], [address], [facility] [address] phone: [phone] fax: [phone] 1) Breztri Aerosphere 160 mcg-9mcg-4.8mcg/actuatio n HFA aerosol inhaler, Inhale 2 puffs 2 (two) times a day Rinse and spit after use - use with aerochamber #1, 11 refills MED REQUIRES PADR, PADR WAS PREVIOUSLY REVIEWED IN JUL 2023 AND NOTED TO USE FORMULARY PRODUCT 2) fluticasone propionate 50 mcg/actuation nasal spray,suspension,Adminis ter 2 sprays into each nostril daily #1, 11 refills DISPOSITION: Ineligible. Please considering prescribing the above medication(s) for the patient. If declining to prescribe, please comment and add RX to non-VA medication list. /kole/ CHENTE HENDERSON PharmD [facility] Pharmacist, Pharmacy Signed: 02/28/2024 15:53 Receipt Acknowledged By: 03/01/2024 17:02 /kole/ NAEEM FITZGERALD MD [facility] Feb 28, 2024 03:45 PM PHARMACY MEDICATIO N MGT DISCHARGE NOTE: LOCAL TITLE: PHARMACY CRITICAL ACCESS HOSPITAL CARE PRESCRIPTION PROCESSING NOT STANDARD TITLE: PHARMACY MEDICATION MGT DISCHARGE NOTE DATE OF NOTE: FEB 28, 2024@15:45 ENTRY DATE: FEB 28, 2024@15:46 AUTHOR: CHENTE HENDERSON WHI EXP COSIGNER: URGENCY: STATUS: COMPLETED PHARMACY [facility] PRESCRIPTION PROCESSING NOTE STL Has ADDENDA Pharmacy service received prescription(s) via: Inbound ERx ELIGIBILITY: Pharmacy service cannot accept this prescription because the patient is not CCN (Care in the Community) eligible. PRESCRIPTION INFORMATION: Provider Information:[address] [facility], [address] [address] phone: [phone] fax: [phone] 1) Breztri Aerosphere 160 mcg-9mcg-4.8mcg/actuatio n HFA aerosol inhaler, Inhale 2 puffs 2 (two) times a day Rinse and spit after use - use with aerochamber #1, 11 refills MED REQUIRES PADR, PADR WAS PREVIOUSLY REVIEWED IN JUL 2023 AND NOTED TO USE FORMULARY PRODUCT 2) fluticasone propionate 50 mcg/actuation nasal spray,suspension,Adminis ter 2 sprays into each nostril daily #1, 11 refills DISPOSITION: Ineligible. Please considering prescribing the above medication(s) for the patient. If declining to prescribe, please comment and add RX to non-VA medication list. /kole/ CHENTE HENDERSON, PharmD [facility] Pharmacist, Pharmacy Signed: 02/28/2024 15:53 Receipt Acknowledged By: 03/01/2024 17:02 /kole/ ANEEM COLEMAN MD 03/01/2024 ADDENDUM STATUS: COMPLETED pls let pt know that [place] pharmacy reviewed [place] request for Breztri in July 2023 and was not approved. Alternative inhalers I can order at [place] pharmacy is WIxela ( steroid inhaler ) and Spiriva . These 2 inhalers will replace Breztri , if he would like inhaler prescription from [place] pharmacy. /kole/ NAEEM COLEMAN MD Signed: 03/01/2024 17:04 Receipt Acknowledged By: * AWAITING SIGNATURE * ALEA DAWSON BRIDGET WHITNEY [facility]
--- OUTSIDE RECORDS SUMMARY | 2024-12-13 15:29 | XMS_ITS | Clinical Summary ---
Author Organization [facility] Address [address] [place] [address] Care Team Providers Care School Inspector Name Role Phone Patricia Chan [facility] Primary Care Provider + Allergies No known active allergies Medications ondansetron 4 MG disintegrating tablet Take 1 tablet (4 mg total) by mouth every 8 (eight) hours as needed for Nausea. 20 tablet 2 Active Social History Tobacco Use Types Packs/Day Years Used Date Smoking Tobacco: Never Passive Smoke Exposure: Never Smokeless Tobacco: Never Tobacco Cessation:Counseling Given: Not Answered Alcohol Use Standard Drinks/Week Comments Yes 93.3 (1 standard drink = 0.6 oz pure alcohol) 8 cans of beer / day Sex and Gender Information Value Date Recorded Sex Assigned at Not on file Legal Sex Male 7:52 PM CDT Gender Identity Not on file Sexual Orientation Not on file Last Filed Vital Signs Vital Sign Reading Time Taken Comments Blood Pressure 129/91 02/13/2024 3:34 AM CDT Pulse 78 02/13/2024 3:34 AM CDT Temperature 36.3 C (97.4 F) 02/13/2024 3:34 AM CDT Respiratory Rate 19 02/13/2024 3:34 AM CDT Oxygen Saturation 97% 02/13/2024 3:34 AM CDT Inhaled Oxygen Concentration - - Weight 67.6 kg (149 lb 0.5 oz) 02/12/2024 11:07 PM CDT Height 182.9 cm (6') 02/12/2024 11:07 PM CDT Body Mass Index 20.21 02/12/2024 11:07 PM CDT Plan of Treatment Health Maintenance Due Date Last Done Comments Colorectal Cancer Screening Colonoscopy (10 Years) 1972 Annual Physical 1975 Hepatitis C 1990 Hepatitis B Vaccines (1 of 3 - 19+ 3-dose series) 1991 DTaP, Tdap and Td Vaccines (3 - Td or Tdap) 02/20/2018 02/21/2008, 12/13/1999, 12/10/1989, Additional history exists Zoster Vaccines (1 of 2) 2022 COVID-19 Vaccine ( - season) 2024 Meningococcal Vaccine Aged Out 12/06/1998 No juancho marichuy eligible based on patient's age to complete this topic Pneumococcal Vaccine: Pediatrics (0 to 5 Years) and At-Risk Patients (6 to 64 Years) Aged Out 04/26/2023 No longer eligible based on patient's age to complete this topic Meningococcal B Vaccine Aged Out No l onger eligible based on patient's age to complete this topic RSV Immunizations Under 20 Months Aged Out No longer eligible based on patient's age to complete this topic Insurance [facility] Care Teams School Inspector Relationship Specialty Start Date End Date Patricia Chan, COUNTER POCKET SEWER- [address] [place] [address] PCP - General NURSE PRACTITIONER 10/06/21
--- OUTSIDE RECORDS SUMMARY | 2024-12-13 15:29 | XMS_ITS | Patient Health Record ---
Author Organization [facility] Address [address] [place] [address] Care Team Providers Care Senior Informatica Etl Developer Name Role Phone Patricia Boyle Primary Care Provider Laverne Kushal Morel Unavailable [phone] ZZ-Migration, Provider Unavailable Unavailab le Allergies No Known Allergies Reason For Referral No Information Medications Medication SIG (Take, Route, Frequency, Duration) Notes Start Date End Date Status Fluticasone Propionate 50 MCG/ACT 2 spray(s) in each nostril BID Active CETIRIZINE 10 mg 1 tab(s) orally once a day for 30 days Active FLONASE 0.05 mg/inh 2 spray(s) intranasally (avoid nasal septum) bid Active OMEPRAZOLE 40 mg daily Active EPIPEN 2-NJ 0.3 mg as directed intramuscularly once for 30 days 04/26/2023 Active Breztri Aerosphere 160 MCG-4.8 MCG-9 MCG/INH 2 PUFF(S) INHALED 2 TIMES A DAY 2 puffs bid *Please review and pick correct strength-formulati on from [employer] options. If intended option is not shown, discontinue and re-order from Quick Search* Active LISINOPRIL 10mg daily Active Omeprazole 40 mg daily *Please review and pick correct strength-formulati on from [employer] options. If intended option is not shown, discontinue and re-order from Quick Search* Active BREZTRI AEROSPHERE 160 mcg-4.8 mcg-9 mcg/inh 2 puff(s) inhaled 2 times a day 2 puffs bid Active D 2000 IU 50 MCG 1 TAB(S) ORALLY ONCE A DAY for 30 DAY(S) *Please review for potential replacement for e-prescription and drug interaction check* 04/26/2023 Active Flonase Allergy Relief 50 MCG/ACT 2 spray(s) intranasally (avoid nasal septum) bid Active Singulair 10 MG 1 tab(s) orally once a day 10mg daily Active Lisinopril 10mg daily *Plea se review and pick correct strength-formulati on from [employer] options. If intended option is not shown, discontinue and re-order from Quick Search* Active Cetirizine HCl 10 MG 1 tab(s) orally once a day for 30 days Active EpiPen 2-Nj 0.3 MG/0.3ML as directed intramuscularly once for 30 days 04/26/2023 Active NASAL WASHES N/A DIRECTED INTRANASALLY NEEDED for 30 *Please review for potential replacement for e-prescription and drug interaction check* Active ALBUTEROL (EQV-PROAIR HFA) 90 MCG/INH 2 PUFF(S) INHALED EVERY 6 HOURS *Please review for potential replacement for e-prescription and drug interaction check* 04/26/2023 Active FLUTICASONE NASAL 50 mcg/inh 2 spray(s) in each nostril BID Active SINGULAIR 10 mg 1 tab(s) orally once a day 10mg daily Active Immunizations Vaccine Route Administration Date Status Comme nts Pneumovax 23 IM Intramuscular 04/26/2023 Administered Social History Tobacco Use: Social History Observation Description Date Details (start date - stop date) Former Smoker NA - NA Smoking Smart Form: Question Answer Notes Are you a: former smoker How long it has been since you last smoked? 6-12 months Problems Problem Type SNOMED Code ICD Code Onset Dates Problem Status W/U Status Risk Notes Problem Chronic allergic conjunctivitis (47831203) Other chronic allergic conjunctivitis (H10.45) Active confirmed Problem Allergic rhinitis caused by pollen (disorder) (60149119) Allergic rhinitis due to pollen (J30.1) Active confirmed Problem Allergic rhinitis (52570040) Other allergic rhinitis (J30.89) Active confirmed Problem Chronic sinusitis (69550006) Chronic sinusitis, unspecified (J32.9) Active confirmed Problem Nasal polyp, unspecified (J33.9) Active confirmed Problem Uncomplicated moderate persistent asthma (685212385) Moderate persistent asthma, uncomplicated (J45.40) Active confirmed Problem Irritable bowel syndrome (25315486) Irritable bowel syndrome without diarrhea (K58.9) Active confirmed Problem Allergic rhinitis caused by animal hair and dander (768707836125632) Allergic rhinitis due to animal (cat) (dog) hair and dander (J30.81) Active confirmed Problem Disorder of vocal cord (37717382) 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 confirmed Encounters Encounter Location Date Provider Diagnosis [address] [address] 02/19/2024 Provider DANIELE-Esteban Nasal polyp, unspecified J33.9 ; Moderate persistent [...] unspecified (ICD-10 - J32.9) Plan Of Treatment Pending Test Test Name Order Date -Pneumococcal Ab (23 Serotype) 3 Insurance Providers Payer Name Payer Address Payer Phone Subscriber Number Group Number Insured Name Patient Relationship to Insured Coverage Start Date Coverage End Date [facility] [address] [place] [address] [id number] [facility] Luther Palencia Self - patient is the insured Medical (General) History Medical History History ICD Code Allergic rhinitis due to pollen J30.1 Allergic rhinitis due to animal (cat) (d og) hair and dander J30.81 Other allergic rhinitis J30.89 Other chronic allergic conjunctivitis H1 0.45 Moderate persistent asthma, uncomplicate d J45.40 Chronic sinusitis, unspecified J32.9 Nasal polyp, unspecified J33.9 Other diseases of vocal cords J38.3 Irritable bowel syndrome without diarrhe a K58.9 Surgical History Surgery Date(Month/Year) Hospitalization History Reason Date(Month/Year) Diverticulitis 2014
[2024-12-13 19:43] LABS: Hepatitis B Surface Antigen Negative (Negative)
[2024-12-13 20:00] LABS: Hepatitis B Surface Anti Res Negative
[2024-12-14 08:12] LABS: Hepatitis B Core Ab Total NON-REACTIVE (NON-REACTIVE)
[2024-12-15 13:24] LABS: NIL 0.03 IU/mL; Quantiferon TB Plus, 1T NEGATIVE (NEGATIVE); TB1-NIL 0.03 IU/mL; TB2-NIL 0.06 IU/mL
== END 2024-12-13 13:49 | disposition home or self-care (01) ==
PROVIDERS: PCP Nurse Practitioner Family; Visit Provider Nurse Practitioner
DX: K51.90 Ulcerative colitis, unspecified, without complications (principal); K51.40 Inflammatory polyps of colon without complications
CPT/HCPCS: 36415; 80053; 85027; 85652; 86140; 86480; 86704; 86706; 87340

== ENCOUNTER 2025-01-17 11:47 | Outpatient (CLI) | payer BC, SELFPAY ==
--- OUTSIDE RECORDS SUMMARY | 2025-01-17 11:49 | XMS_ITS | Referral Summary ---
Author Organization [facility] Building [address] Address [address] [place] [address] Care Team Providers Care Quantitative Developer Name Role Phone Patricia Chan SUPERVISOR CUST[employer]ER [employer] Primary Care Provider + Encounters Date Type Department Care Team Description 12/18/2024 Telephone [facility] [address] [place] [address] Kori Gifford RN 12/05/2024 Orders Only [facility] at [address] [place] [address] Kori Ruano NP from Last 3 Months Allergies Active Allergy [...] into each nostril daily 16 g 3 5 Active Active Problems Problem Noted Date Diagnosed Date COPD exacerbation 10/02/2024 Assessment & Plan (10/02/2024 2:35 PM CORPORATION SECRETARY): This is his second exacerbation since his Breztri was denied He will start steroids and antibiotics today as his symptoms have been persistent for 3 weeks Continue saline nasal rinses and intranasal steroids Continue montelukast and Zyrtec He is aware of signs and symptoms that are emergently reportable Nicotine dependence, cigarettes, in remission Assessment & Plan (10/02/2024 2:33 PM CORPORATION SECRETARY): He is overdue for annual lung cancer screening I have ordered this today when he will inform the office if he is not scheduled promptly Assessment & Plan (02/28/2024 8:27 PM CDT): Quit in 2021 Due for annual lung cancer screening in September 2024 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 We will attempt to contact the [place] again for coverage options. Albuterol as needed only, discussed indications for use He was aware signs and symptoms that would require earlier evaluation or change to his plan of care Assessment & Plan (02/28/2024 8:25 PM CDT): Continue Breyna twice daily, although this lends inferior clinical benefit as compared to Breztri I will send RX to the [place] pharmacy today in an attempt to get [...] on file Legal Sex Male 10:30 AM CORPORATION SECRETARY Gender Identity Not on file Sexual Orientation Not on file Last Filed Vital Signs Vital Sign Reading Time Taken Comments Blood Pressure 150/80 10/02/2024 1:04 PM CORPORATION SECRETARY Pulse 114 10/02/2024 1:04 PM CORPORATION SECRETARY Temperature 37.5 C (99.5 F) 10/02/2024 1:04 PM CORPORATION SECRETARY Respiratory Rate 18 10/02/2024 1:04 PM CORPORATION SECRETARY Oxygen Saturation 99% 10/02/2024 1:04 PM CORPORATION SECRETARY Inhaled Oxygen Concentration - - Weight 89.7 kg (197 lb 11.2 oz) 10/02/2024 1:04 PM CORPORATION SECRETARY Height 185.4 cm (6' 1 ) 10/02/2024 1:04 PM CORPORATION SECRETARY Body Mass Index 26.08 10/02/2024 1:04 PM CORPORATION SECRETARY Plan of Treatment Not on file Procedures Procedure Name Priority Date/Time Associated Diagnosis Comments CT LUNG CANCER SCREENING Schedule Routine, Read Routine (OP Routine) 09/22/2023 7:09 AM CORPORATION SECRETARY Nicotine dependence, cigarettes, in remission from Last 3 Months or Most Recently Relevant to Health Maintenance Results * CT Lung Cancer Screening (09/22/2023 7:09 AM CORPORATION SECRETARY) Anatomical Region Laterality Modality Chest N/A Computed Tomogra phy 09/22/2023 7:43 AM CORPORATION SECRETARY Narrative 09/22/2023 7:48 AM CORPORATION SECRETARY EXAM DESCRIPTION: CT LUNG CANCER SCREENING REASON [...] Mykel Castillo D.O. PS: PS Report ID: [id number] Reading Location: [id number] Procedure Note Mykel Castillo, - 09/22/2023 EXAM [...] Mykel Castillo D.O. PS: PS Report ID: [id number] Reading Location: [place] [address] Luther Solis MD [facility] [place] PROCEDURES Final Result from Last 3 Months or Most Recently Relevant to Health Maintenance Insurance [facility] Care Teams Quantitative Developer Relationship Specialty Start Date End Date Patricia Chan NP PCP - General Nurse Practitioner 08/24/23
--- OUTSIDE RECORDS SUMMARY | 2025-01-17 11:49 | XMS_ITS | Continuity of Care Document ---
Author Name [facility] Organization [facility] Care Team Providers Care Stone Setter Name Role Phone [facility] Unavailable Unavailable Problems Combined list of problems from [facility] of [facility] and [facility] facilities. It does not include entries that were removed or entered in error. Problem Status Onset Date Problem Type Date of Resolution Comments Source Need For Prophylactic Antibiotics Inactive Condition [facility] Allergic Rhinitis ([facility] [id number]) Active Condition [facility] Asthma ([facility] [id number]) Active Condition [facility] Depression Active Condition [facility] - Gastro-Esophageal Reflux Disease ([facility] [id number]) Active Condition [facility] Low Back Pain ([facility] [id number]) Active Condition [facility] Neck Pain ([facility] [id number]) Active Condition [facility] Diagnosis: ICD-10-CM F32.A Depression, unspecified Active Diagnosis [facility] Diagnosis: ICD-10-CM M25.511 Pain in right shoulder Active Diagnosis [facility] Diagnosis: ICD-10-CM H52.4 Presbyopia Active Diagnosis [facility] Diagnosis: ICD-10-CM J45.909 Unspecified asthma, uncomplicated Active Diagnosis [facility] Medications Combined list of outpatient medications from Department of [facility] and [facility] facilities.Medications provided include 1) outpatient medications from the last 15 months, and 2) patient-reported medications. Medication Details Route Status Patient Instructions Prescription Expires Prescription Number Last Dispense Date Ordering Provider Order Date Order Qty Source ALBUTEROL SO4 90MCG/ACTUA T (CFC-F) INHL,ORAL,8 .5GM INHALE 2 PUFFS ORAL INHALATI ON FOUR TIMES A DAY NEEDED FOR EXERCISE -INDUCED BRONCHOS PASM SHAKE WELL. RINSE MOUTHPIE CE FREQUENT LY TO PREVENT CLOGGING . RESPIR ATORY (INHAL ATION) 11/11/2024 [id number] 4 COLEMAN,A RMIDA A 2023 1 [facility] AZELASTINE HCL 137MCG/SPRA Y INHL,NASAL, 30ML SPRAY 2 SPRAYS IN NOSTRIL( S) TWICE A DAY FOR ALLERGIC RHINITIS *PRIME BEFORE USE* NASAL ACTIVE 01/04/2026 [id number] 5 COLEMAN,A RMIDA A 2024 4 [facility] DICLOFENAC NA 1% GEL,TOP APPLY 2 GM TO AFFECTED AREA(S) FOUR TIMES A DAY NEEDED TO RIGHT SHOULDER FOR PAIN. DO NOT EXCEED MORE THAN 16 GRAMS DAILY TO ANY LOWER EXTREMIT Y JOINT. NOT MORE THAN 8 GRAMS DAILY TO ANY UPPER EXTREMIT Y JOINT. MAX 32GM/DAY OVER ALL JOINTS. (MEASURE DOSE WITH RULER ATTACHED INSIDE BOX) AAN Trevizo 12/03/2023 [id number] DOEMIGDIO C 2023 100 [facility] ESCITALOPRA M OXALATE 20MG TAB TAKE ONE-HALF TABLET BY MOUTH ONCE A DAY ORAL ACTIVE COLEMAN,A RMIDA A 2024 [facility] FERROUS SO4 325MG TAB TAKE ONE TABLET BY MOUTH ONCE A DAY ORAL ACTIVE COLEMAN,A RMIDA A 2022 [facility] FLUTICASONE PROPIONATE 50MCG/SPRAY SOLN,NASAL, 16GM INSTILL 1 SPRAY IN NOSTRIL( S) TWICE A DAY FOR CHRONIC RHINOSIN USITIS (MUST BE USED DIRECTED FOR MINIMUM OF 21 DAYS TO PROVIDE ADEQUATE BENEFITS ) NASAL ACTIVE 01/04/2026 [id number] 5 COLEMAN,A RMIDA A 2024 3 [facility] LISINOPRIL 20MG TAB TAKE ONE-HALF TABLET BY MOUTH ONCE A DAY ORAL ACTIVE COLEMAN,A RMIDA A 2024 [facility] LISINOPRIL 40MG TAB TAKE ONE-HALF TABLET BY MOUTH ONCE A DAY ORAL ACTIVE COLEMAN,A RMIDA A 2022 [facility] MESALAMINE 500MG CAP,SA TAKE 2 CAPSULES BY MOUTH TWICE A DAY ORAL ACTIVE COLEMAN,A RMIDA A 2024 [facility] MONTELUKAST NA 10MG TAB TAKE ONE TABLET BY MOUTH EVERY EVENING FOR EXERCISE -INDUCED BRONCHOC ONSTRICT ION ORAL ACTIVE 10/27/2025 [id number] 5 COLEMAN,A RMIDA A 2024 90 [facility] MONTELUKAST NA 10MG TAB TAKE ONE TABLET BY MOUTH EVERY EVENING FOR EXERCISE -INDUCED BRONCHOC ONSTRICT ION ORAL DISCONT INUED 11/11/2024 [id number] 4 COLEMAN,A RMIDA A 2023 90 [facility] OMEPRAZOLE 40MG CAP,EC TAKE 1 CAPSULE BY MOUTH EVERY MORNING BEFORE A MEAL ORAL ACTIVE COLEMAN,A RMIDA A 2024 [facility] OMEPRAZOLE 40MG CAP,EC TAKE 1 CAPSULE BY MOUTH EVERY MORNING BEFORE A MEAL ORAL ACTIVE COLEMAN,A RMIDA A 2022 [facility] VALACYCLOVI R HCL 500MG TAB TAKE ONE TABLET BY MOUTH ONCE A DAY ORAL ACTIVE COLEMAN,A RMIDA A 2024 [facility] Immunizations Combined list of available immunizations from the Department of Defense and Veterans Affairs facilities. Immunization Series Date Given Administered By Site Reaction Lot Number CVX Code Drug Backup Administrative Coordinator Status Comments Source PNEUMOCOCCAL POLYSACCHARID E [id number] 1 2022 33 complet ed HISTORICA L INFORMATI ON - FROM OTHER [facility], [facility] DIVISIO N INFLUENZA, INJECTABLE, MDCK, PRESERVATIVE FREE, QUADRIVALENT 6 2018 171 complet ed HISTORICA L INFORMATI ON - FROM OTHER [facility], [facility] DIVISIO N INFLUENZA, INJECTABLE, QUADRIVALENT, PRESERVATIVE FREE 5 2017 150 complet ed HISTORICA L INFORMATI ON - FROM OTHER [facility], [facility] DIVISIO N INFLUENZA, INJECTABLE, QUADRIVALENT 4 2017 158 complet ed HISTORICA L INFORMATI ON - FROM OTHER [facility], [facility] DIVISIO N INFLUENZA, INJECTABLE, QUADRIVALENT, PRESERVATIVE FREE 3 2016 150 complet ed HISTORICA L INFORMATI ON - FROM OTHER REGISTRY, [facility] DIVFORMERLY [facility] N INFLUENZA, INJECTABLE, QUADRIVALENT 2 2014 158 complet ed HISTORICA L INFORMATI ON - FROM OTHER [facility], [facility] DIVISIO N INFLUENZA, SEASONAL, INJECTABLE, PRESERVATIVE FREE 1 2012 140 complet ed HISTORICA L INFORMATI ON - FROM OTHER REGISTRY, [facility] DIV[facility]IO N influenza virus vaccine, live, attenuated, for intranasal use 1 2009 [id number] [employer] (MED) complet influenza virus vaccine, live, attenuate d, for intranasa l use [facility] influenza virus vaccine, split virus (incl. purified surface antigen)-reti red CODE 1 2007 [id number] [employer] (SKB) complet ed influenza virus vaccine, split virus (incl. purified surface antigen)- retired CODE [facility] typhoid Vi capsular polysaccharid e vaccine 1 2007 [id number] San[employer]i Pasteur ([facility]) complet ed typhoid Vi capsular polysacch aride vaccine DoD tetanus toxoid, reduced diphtheria toxoid, and acellular pertu is vaccine, adsorbed 1 2007 [id number] 115 San[employer]i Pasteur ([facility]) complet ed tetanus toxoid, reduced diphtheri a toxoid, and acellular pertussis vaccine, adsorbed [facility] influenza virus vaccine, live, attenuated, for intranasal use 1 2007 [id number] [employer] (MED) complet influenza virus vaccine, live, attenuate d, for intranasa l use [facility] influenza virus vaccine, split virus (incl. purified surface antigen)-reti red CODE 1 2005 [id number] 15 Sanofi Pasteur ([facility]) complet ed influenza virus vaccine, split virus (incl. purified surface antigen)- retired CODE [facility] varicella virus vaccine 0 2005 21 () Not Given varicella virus vaccine [facility] typhoid vaccine, parenteral, other than acetone-kille d, dried 1 2005 [id number] 41 Sanofi Pasteur ([facility]) complet ed typhoid vaccine, parentera l, other than acetone-k illed, dried DoD influenza virus vaccine, split virus (incl. purified surface antigen)-reti red CODE 1 2004 [id number] 15 Sanofi Pasteur ([facility]) complet ed influenza virus vaccine, split virus (incl. purified surface antigen)- retired CODE DoD anthrax vaccine 6 2003 [id number] 24 [facility] complet ed anthrax vaccine DoD typhoid vaccine, parenteral, other than acetone-kille d, dried 0 2003 [id number] 41 [facility] complet ed typhoid vaccine, parentera l, other than acetone-k illed, dried DoD anthrax vaccine 5 2003 [id number] 24 [facility] ([facility]) complet ed anthrax vaccine DoD influenza virus vaccine, whole virus 0 2002 [id number] 16 [employer] (PW) complet ed influenza virus vaccine, whole virus DoD vaccinia (smallpox) vaccine 0 2002 [id number] 75 [place] ([place]) complet ed vaccinia (smallpox ) vaccine DoD anthrax vaccine 4 2002 [id number] 24 [facility] ([facility]) complet ed anthrax vaccine DoD anthrax vaccine 3 2002 [id number] 24 [facility] ([facility]) complet ed anthrax vaccine DoD influenza virus vaccine, whole virus 0 2001 [id number] 16 [facility] ([facility]) complet ed influenza virus vaccine, whole virus [facility] typhoid vaccine, parenteral, other than acetone-kille d, dried 0 2001 [id number] 41 [facility] ([facility]) complet ed typhoid vaccine, parentera l, other than acetone-k illed, dried DoD influenza virus vaccine, whole virus 0 2000 [id number] 16 San[employer]i Pasteur ([facility]) complet ed influenza virus vaccine, whole virus [facility] influenza virus vaccine, whole virus 0 2000 [id number] 16 [employer] ([facility]) complet ed influenza virus vaccine, whole virus [facility] tetanus and diphtheria toxoids, adsorbed, preservative free, for adult use (2 Lf of tetanus toxoid and 2 Lf of diphtheria toxoid) 0 1999 [id number] 09 [facility] ([facility]) complet ed tetanus and diphtheri a toxoids, adsorbed, preservat glenn free, for adult use (2 Lf of tetanus toxoid and 2 Lf of diphtheri a toxoid) DoD typhoid vaccine, parenteral, other than acetone-kille d, dried 0 1999 [id number] 41 San[employer]i Pasteur ([facility]) complet ed typhoid vaccine, parentera l, other than acetone-k illed, dried DoD yellow fever vaccine 0 1999 [id number] 37 [facility] (CON) complet ed yellow fever vaccine DoD influenza virus vaccine, whole virus 0 1998 [id number] 16 [facility] (CON) complet ed influenza virus vaccine, whole virus DoD anthrax vaccine 2 1998 MIP 24 () complet ed anthrax vaccine DoD meningococcal polysaccharid e vaccine (MPSV4) 0 [id number] 32 Sanofi Pasteur ([facility]) complet ed meningoco ccal polysacch aride vaccine (MPSV4) DoD anthrax vaccine 1 1998 [id number] 24 [facility] [employer] [facility] ([facility]) complet ed anthrax vaccine DoD influenza virus vaccine, whole virus 0 [id number] 16 Laura ([facility]) complet ed influenza virus vaccine, whole virus DoD typhoid vaccine, parenteral, acetone-kille d, dried ([place]. ) 2 1997 53 () complet ed typhoid vaccine, parentera l, acetone-k illed, dried ([place] ) DoD typhoid vaccine, parenteral, other than acetone-kille d, dried 0 1997 41 () complet ed typhoid vaccine, parentera l, other than acetone-k illed, dried DoD influenza virus vaccine, whole virus 0 1996 [id number] 16 [facility] (CON) complet ed influenza virus vaccine, whole virus DoD hepatitis A vaccine, adult dosage 2 1996 52 () complet ed hepatitis A vaccine, adult dosage DoD influenza virus vaccine, whole virus 0 1996 16 () complet ed influenza virus vaccine, whole virus DoD hepatitis A vaccine, adult dosage 2 1996 52 () complet ed hepatitis A vaccine, adult dosage DoD hepatitis A vaccine, adult dosage 1 1995 52 () complet ed hepatitis A vaccine, adult dosage DoD hepatitis A vaccine, adult dosage 1 1995 52 () complet ed hepatitis A vaccine, adult dosage DoD yellow fever vaccine 0 1989 37 () complet ed yellow fever vaccine DoD trivalent poliovirus vaccine, live, oral 0 1989 02 () complet ed trivalent polioviru s vaccine, live, oral DoD trivalent poliovirus vaccine, live, oral 0 1989 02 () complet ed trivalent polioviru s vaccine, live, oral DoD measles and rubella virus vaccine 0 1989 04 () Not Given measles and rubella virus vaccine DoD tetanus and diphtheria toxoids, adsorbed, preservative free, for adult use (2 Lf of tetanus toxoid and 2 Lf of diphtheria toxoid) 0 1989 09 () complet ed tetanus and diphtheri a toxoids, adsorbed, preservat glenn free, for adult use (2 Lf of tetanus toxoid and 2 Lf of diphtheri a toxoid) DoD tetanus and diphtheria toxoids, adsorbed, preservative free, for adult use (2 Lf of tetanus toxoid and 2 Lf of diphtheria toxoid) 0 1989 09 () complet ed tetanus and diphtheri a toxoids, adsorbed, preservat glenn free, for adult use (2 Lf of tetanus toxoid and 2 Lf of diphtheri a toxoid) DoD Results Combined list of recent chemistry, hematology [...] Nov 11, 2023 03:50 PM Reporting Lab: [facility] [id number] Performing Lab: [facility] [id number] [facility] MICRAL/CR EAT PROFILE (STL) ALBUMIN/CRE ATININE [MASS RATIO] IN URINE 33 mg/g 0 - 29 11/11 H Specimen Type: URINE No comment entered. Ordering Provider: CYNDI COLEMAN Report Released Date/Time: Nov 11, 2023 03:50 PM Reporting Lab: [facility] [place] [address] Performing Lab: [facility] MICRAL/CR EAT PROFILE (STL) CREATININE [MASS/VOLUM E] IN URINE 58.0 mg/dL 63.0 - 166.0 11/11 L Specimen Type: URINE No comment entered. Ordering Provider: CYNDI COLEMAN Report Released Date/Time: Nov 11, 2023 03:50 PM Reporting Lab: [facility] [place] [address] Performing Lab: [facility] CBC LEUKOCYTES [#/VOLUME] IN BLOOD BY AUTOMATED COUNT 7.5 10*3/uL 3.6 - 11.2 11/11 Specimen Type: BLOOD No comment entered. Ordering Provider: CYNDI COLEMAN Report Released Date/Time: Nov 11, 2023 03:50 PM Reporting Lab: [facility] [place] [address] Performing Lab: [facility] [place] ERYTHROCYTE S [#/VOLUME] IN BLOOD BY AUTOMATED COUNT 4.61 10*6/uL 4.10 - 5.70 11/11 Specimen Type: BLOOD No comment entered. Ordering Provider: CYNDI COLEMAN Report Released Date/Time: Nov 11, 2023 03:50 PM Reporting Lab: [facility] [place] [address] Performing Lab: [facility] [place] HEMOGLOBIN [MASS/VOLUM E] IN BLOOD 14.0 g/dL 13.1 - 16.8 11/11 Specimen Type: BLOOD No comment entered. Ordering Provider: CYNDI COLEMAN Report Released Date/Time: Nov 11, 2023 03:50 PM Reporting Lab: [facility] [place] [address] Performing Lab: [facility] [place] HEMATOCRIT [VOLUME FRACTION] OF BLOOD 41.2 38.2 - 48.4 11/11 Specimen Type: BLOOD No comment entered. Ordering Provider: CYNDI COLEMAN Report Released Date/Time: Nov 11, 2023 03:50 PM Reporting Lab: [facility] [place] [address] Performing Lab: [facility] CBC MCV [ENTITIC VOLUME] BY AUTOMATED COUNT 89.4 fL 80.0 - 100.0 11/11 Specimen Type: BLOOD No comment entered. Ordering Provider: CYNDI COLEMAN Report Released Date/Time: Nov 11, 2023 03:50 PM Reporting Lab: [facility] [place] [address] Performing Lab: [facility] CBC MCH [ENTITIC MASS] BY AUTOMATED COUNT 30.4 pg 27.0 - 34.0 11/11 Specimen Type: BLOOD No comment entered. Ordering Provider: CYNDI COLEMAN Report Released Date/Time: Nov 11, 2023 03:50 PM Reporting Lab: [facility] [place] [address] Performing Lab: [facility] CBC MCHC [MASS/VOLUM E] BY AUTOMATED COUNT 34.0 g/dL 33.0 - 36.0 11/11 Specimen Type: BLOOD No comment entered. Ordering Provider: CYNDI COLEAMN Report Released Date/Time: Nov 11, 2023 03:50 PM Reporting Lab: [facility] [place] [address] Performing Lab: [facility] [place] PLATELETS [#/VOLUME] IN BLOOD BY AUTOMATED COUNT 401 10*3/uL 150 - 400 11/11 H Specimen Type: BLOOD No comment entered. Ordering Provider: CYNDI COLEMAN Report Released Date/Time: Nov 11, 2023 03:50 PM Reporting Lab: [facility] [place] [address] Performing Lab: [facility] [place] PLATELET MEAN VOLUME [ENTITIC VOLUME] IN BLOOD BY AUTOMATED COUNT 8.8 fL 7.5 - 11.2 11/11 Specimen Type: BLOOD No comment entered. Ordering Provider: CYNDI COLEMAN Report Released Date/Time: Nov 11, 2023 03:50 PM Reporting Lab: [facility] [place] [address] Performing Lab: [facility] [place] ERYTHROCYTE DISTRIBUTIO N WIDTH [RATIO] BY AUTOMATED COUNT 12.1 11.8 - 15.1 11/11 Specimen Type: BLOOD No comment entered. Ordering Provider: CYNDI COLEMAN Report Released Date/Time: Nov 11, 2023 03:50 PM Reporting Lab: [facility] [place] [address] Performing Lab: [facility] [address] [facility] LYMPHOC[facility]TES /100 LEUKOCYTES IN BLOOD BY AUTOMATED COUNT 27 11/11 Specimen Type: BLOOD No comment entered. Ordering Provider: CYNDI COLEMAN Report Released Date/Time: Nov 11, 2023 03:50 PM Reporting Lab: [facility] [place] [address] Performing Lab: [facility] [place] MONOCYTES/1 00 LEUKOCYTES IN BLOOD BY AUTOMATED COUNT 7 11/11 Specimen Type: BLOOD No comment entered. Ordering Provider: CYNDI COLEMAN Report Released Date/Time: Nov 11, 2023 03:50 PM Reporting Lab: [facility] [place] [address] Performing Lab: [facility] [place] NEUTROPHILS /100 LEUKOCYTES IN BLOOD BY AUTOMATED COUNT 63 11/11 Specimen Type: BLOOD No comment entered. Ordering Provider: CYNDI COLEMAN Report Released Date/Time: Nov 11, 2023 03:50 PM Reporting Lab: [facility] [place] [address] Performing Lab: [facility] [place] EOSINOPHILS /100 LEUKOCYTES IN BLOOD BY AUTOMATED COUNT 2 11/11 Specimen Type: BLOOD No comment entered. Ordering Provider: CYNDI COLEMAN Report Released Date/Time: Nov 11, 2023 03:50 PM Reporting Lab: [facility] [place] [address] Performing Lab: [facility] [place] BASOPHILS/1 00 LEUKOCYTES IN BLOOD BY AUTOMATED COUNT 0 11/11 Specimen Type: BLOOD No comment entered. Ordering Provider: CYNDI COLEMAN Report Released Date/Time: Nov 11, 2023 03:50 PM Reporting Lab: [facility] [place] [address] Performing Lab: [facility] [place] LYMPHOCYTES [#/VOLUME] IN BLOOD BY AUTOMATED COUNT 2.06 10*3/uL 0.77 - 4.50 11/11 Specimen Type: BLOOD No comment entered. Ordering Provider: CYNDI COLEMAN Report Released Date/Time: Nov 11, 2023 03:50 PM Reporting Lab: [facility] [place] [address] Performing Lab: [facility] [place] MONOCYTES [#/VOLUME] IN BLOOD BY AUTOMATED COUNT 0.52 10*3/uL 0.19 - 0.80 11/11 Specimen Type: BLOOD No comment entered. Ordering Provider: CYNDI COLEMAN Report Released Date/Time: Nov 11, 2023 03:50 PM Reporting Lab: [facility] [place] [address] Performing Lab: [facility] [place] NEUTROPHILS [#/VOLUME] IN BLOOD BY AUTOMATED COUNT 4.72 10*3/uL 2.10 - 8.00 11/11 Specimen Type: BLOOD No comment entered. Ordering Provider: CYNDI COLEMAN Report Released Date/Time: Nov 11, 2023 03:50 PM Reporting Lab: [facility] [place] [address] Performing Lab: [facility] [place] EOSINOPHILS [#/VOLUME] IN BLOOD BY AUTOMATED COUNT 0.16 10*3/uL 0.00 - 0.60 11/11 Specimen Type: BLOOD No comment entered. Ordering Provider: CYNDI COLEMAN Report Released Date/Time: Nov 11, 2023 03:50 PM Reporting Lab: [facility] [place] [address] Performing Lab: [facility] [place] BASOPHILS [#/VOLUME] IN BLOOD BY AUTOMATED COUNT 0.03 10*3/uL 0.00 - 0.20 11/11 Specimen Type: BLOOD No comment entered. Ordering Provider: CYNDI COLEMAN Report Released Date/Time: Nov 11, 2023 03:50 PM Reporting Lab: [facility] [place] [address] Performing Lab: [facility] COMPREHEN SIVE METABOLIC PANEL CREATININE [MASS/VOLUM E] IN SERUM OR PLASMA 0.93 mg/dL 0.70 - 1.30 11/11 Specimen Type: PLASMA Comment: No hemolysis noted. Ordering Provider: CYNDI COLEMAN Report Released Date/Time: Nov 11, 2023 03:50 PM Reporting Lab: [facility] [place] [address] Performing Lab: [facility] COMPREHEN SIVE METABOLIC PANEL UREA NITROGEN [MASS/VOLUM E] IN SERUM OR PLASMA 12.8 mg/dL 9.0 - 25.0 11/11 Specimen Type: PLASMA Comment: No hemolysis noted. Ordering Provider: CYNDI COLEMAN Report Released Date/Time: Nov 11, 2023 03:50 PM Reporting Lab: [facility] [place] [address] Performing Lab: [facility] COMPREHEN SIVE METABOLIC PANEL GLUCOSE [MASS/VOLUM E] IN SERUM OR PLASMA 120 mg/dL 72 - 99 11/11 H Specimen Type: PLASMA Comment: No hemolysis noted. Ordering Provider: CYNDI COLEMAN Report Released Date/Time: Nov 11, 2023 03:50 PM Reporting Lab: [facility] [place] [address] Performing Lab: [facility] COMPREHEN SIVE METABOLIC PANEL SODIUM [MOLES/VOLU ME] IN SERUM OR PLASMA 139 meq/L 136 - 145 11/11 Specimen Type: PLASMA Comment: No hemolysis noted. Ordering Provider: CYNDI COLEMAN Report Released Date/Time: Nov 11, 2023 03:50 PM Reporting Lab: [facility] [place] [address] Performing Lab: [facility] COMPREHEN SIVE METABOLIC PANEL POTASSIUM [MOLES/VOLU ME] IN SERUM OR PLASMA 4.1 meq/L 3.5 - 5.0 11/11 Specimen Type: PLASMA Comment: No hemolysis noted. Ordering Provider: CYNDI COLEMAN Report Released Date/Time: Nov 11, 2023 03:50 PM Reporting Lab: [facility] [place] [address] Performing Lab: [facility] COMPREHEN SIVE METABOLIC PANEL CHLORIDE [MOLES/VOLU ME] IN SERUM OR PLASMA 105 meq/L 98 - 107 11/11 Specimen Type: PLASMA Comment: No hemolysis noted. Ordering Provider: CYNDI COLEMAN Report Released Date/Time: Nov 11, 2023 03:50 PM Reporting Lab: [facility] [place] [address] Performing Lab: [facility] [address] [address] COMPREHEN SIVE METABOLIC PANEL CARBON DIOXIDE, TOTAL [MOLES/VOLU ME] IN SERUM OR PLASMA 26 meq/L 22 - 31 11/11 Specimen Type: PLASMA Comment: No hemolysis noted. Ordering Provider: CYNDI COLEMAN Report Released Date/Time: Nov 11, 2023 03:50 PM Reporting Lab: [facility] [place] [address] Performing Lab: [facility] COMPREHEN SIVE METABOLIC PANEL CALCIUM [MASS/VOLUM E] IN SERUM OR PLASMA 9.4 mg/dL 8.4 - 10.4 11/11 Specimen Type: PLASMA Comment: No hemolysis noted. Ordering Provider: CYNDI COLEMAN Report Released Date/Time: Nov 11, 2023 03:50 PM Reporting Lab: [facility] [place] [address] Performing Lab: [facility] COMPREHEN SIVE METABOLIC PANEL PROTEIN [MASS/VOLUM E] IN SERUM OR PLASMA 7.4 g/dL 6.0 - 8.6 11/11 Specimen Type: PLASMA Comment: No hemolysis noted. Ordering Provider: CYNDI COLEMAN Report Released Date/Time: Nov 11, 2023 03:50 PM Reporting Lab: [facility] [place] [address] Performing Lab: [facility] COMPREHEN SIVE METABOLIC PANEL ALBUMIN [MASS/VOLUM E] IN SERUM OR PLASMA 4.2 g/dL 3.4 - 5.0 11/11 Specimen Type: PLASMA Comment: No hemolysis noted. Ordering Provider: CYNDI COLEMAN Report Released Date/Time: Nov 11, 2023 03:50 PM Reporting Lab: [facility] [place] [address] Performing Lab: [facility] COMPREHEN SIVE METABOLIC PANEL BILIRUBIN.T OTAL [MASS/VOLUM E] IN SERUM OR PLASMA 0.5 mg/dL 0.2 - 1.2 11/11 Specimen Type: PLASMA Comment: No hemolysis noted. Ordering Provider: CYNDI COLEMAN Report Released Date/Time: Nov 11, 2023 03:50 PM Reporting Lab: [facility] [place] [address] Performing Lab: [facility] COMPREHEN SIVE METABOLIC PANEL ALKALINE PHOSPHATASE [ENZYMATIC ACTIVITY/VO LUME] IN SERUM OR PLASMA 69 U/L 40 - 150 11/11 Specimen Type: PLASMA Comment: No hemolysis noted. Ordering Provider: CYNDI COLEMAN Report Released Date/Time: Nov 11, 2023 03:50 PM Reporting Lab: [facility] [place] [address] Performing Lab: [facility] COMPREHEN SIVE METABOLIC PANEL ASPARTATE AMINOTRANSF ERASE [ENZYMATIC ACTIVITY/VO LUME] IN SERUM OR PLASMA 19 U/L 5 - 34 11/11 Specimen Type: PLASMA Comment: No hemolysis noted. Ordering Provider: CYNDI COLEMAN Report Released Date/Time: Nov 11, 2023 03:50 PM Reporting Lab: [facility] [place] [address] Performing Lab: [facility] COMPREHEN SIVE METABOLIC PANEL ALANINE AMINOTRANSF ERASE [ENZYMATIC ACTIVITY/VO LUME] IN SERUM OR PLASMA 18 U/L 8 - 40 11/11 Specimen Type: PLASMA Comment: No hemolysis noted. Ordering Provider: CYNDI COLEMAN Report Released Date/Time: Nov 11, 2023 03:50 PM Reporting Lab: [facility] [id number] Performing Lab: [facility] [id number] [facility] COMPREHEN SIVE METABOLIC PANEL GLOMERULAR FILTRATION RATE/1.73 SQ M.PREDICTED [VOLUME RATE/AREA] IN SERUM [id number]|2025-01-17 11:50:00|2025-01-17 06:50:00|XMS_ITS|BKG DAEMON|External Medical Summaries|[id number]|" VA OFFICE O/P EST LOW 20 MIN [facility] Encounter Summary Created on: January 17, 2025 BHAVANA TOLLIVER : 05/26/1948 Sex: Male Author Name [facility] [place] [facility] [place] Address [address] [place] [address] Care Team Providers Care Stone Setter Name Role Phone TARA KELLY Primary Care Provider Bin bruce Insurance Providers: All historical and current Section Date Range: From patient's date of to the date document was created. This section includes the names of all active insurance providers for the patient. Insurance Provider Type of Coverage Plan Name Start of Policy Coverage End of Policy Coverage Group Number Member ID Insurance Provider's Telephone Number Policy Ferguson's Name Patient's Relationship to Policy Ferguson EM MCR (WNR) MEDICARE ADVANTAGE MCR (WNR) Jul 07, 2022 [id number] ASHLEE TOLLIVER RY PATIENT MEDICARE (WNR) MEDICARE (M) PART A May 07, 2015 PART A [id number] ASHLEE TOLLIVER RY PATIENT MEDICARE (WNR) MEDICARE (M) PART B May 07, 2015 PART B [id number] ASHLEE TOLLIVER RY PATIENT Selected Encounter This section includes the information on record at [place] for the Encounter. 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, l eye CHIVETTA,KARISHMA NATALIIA [facility] Dec 08, 2024 03:30 PM SECONDARY Combined forms of age-related cataract, left eye [facility]IV[facility]TA,[facility] Dec 08, 2024 03:30 PM SECONDARY Dry eye syndrome of bilateral lacrimal glands [facility] Dec 08, 2024 03:30 PM SECONDARY Ocular hypertension, bilateral [facility] Dec 08, 2024 03:30 PM SECONDARY Other retinal detachments [facility] Dec 08, 2024 03:30 PM SECONDARY Presence of intraocular lens [facility] Plan of Treatment: Future Appointments (+ 6 months) and Future Tests (+/- 45 days) The Plan of Treatment section includes future care activities for the patient from all [place] treatmentfacilities. This section includes future appointments and future orders which are active, pending or scheduled. Future Appointments This section includes appointments that were scheduled to occur 6 months from the date of the Encounter, up to a maximum of 20 appointments. The data comes from all [place] treatment facilities. Appointment Date/Time Appointment Type Appointme nt Facility Name Mar 07, 2025 03:00 PM AMBULATORY - SURGERY [facility] Social History: Smoking Status (Most current) and Tobacco Use (All prior to encounter date) This section includes the most current, and the historical, smoking and tobacco- related health factors from the [place] facility where the Encounter took place. Current Smoking Status This section includes the most current smoking, or tobacco-related health factor, from the [place] facility where the Encounter took place. Date/Time Current Smoking Status Comment Facil ity Nov 20, 2024 01:00 PM VA-TOBACCO NEVER U SED CIGARETTES [facility] Tobacco Use History This section includes a history of the smoking, or tobacco-related health factors, that were collected on or before the date of the Encounter. The data comes from the [place] facility where the Encounter took place. Date/Time Smoking Status/Tobacco Use Comment F acility Nov 20, 2024 01:00 PM VA-TOBACCO USE FOR YANET OTHER TYPE smoked a pipe- quit in 1979 [facility] Nov 01, 2023 01:00 PM VA-TOBACCO FORMER USER [facility] Nov 01, 2023 01:00 PM VA-TOBACCO QUIT 15 YRS OR MORE [facility] Nov 09, 2022 11:30 AM VA-TOBACCO FORMER USER [facility] Nov 09, 2022 11:30 AM VA-TOBACCO QUIT 15 YRS OR MORE [facility] Nov 14, 2021 11:30 AM VA-TOBACCO FORMER USER [facility] Nov 14, 2021 11:30 AM VA-TOBACCO QUIT 15 YRS OR MORE [facility] Nov 06, 2020 01:00 PM VA-TOBACCO FORMER USER [facility] Nov 06, 2020 01:00 PM VA-TOBACCO QUIT 15 YRS OR MORE [facility] Nov 07, 2019 10:00 AM VA-TOBACCO FORMER USER [facility] Nov 07, 2019 10:00 AM VA-TOBACCO QUIT 15 YRS OR MORE [facility] Nov 10, 2018 10:02 AM VA-TOBACCO FORMER USER [facility] Nov 10, 2018 10:02 AM VA-TOBACCO QUIT 15 YRS OR MORE [facility] Advance Directives: All historical and current Section Date Range: From patient's date of to the date document was created. This section includes ALL of a patient's completed or amended VA Advance and Rescinded Directives. The entries below indicate that a directive exists for the patient, but an actual copy is not included with this document. The data comes from all [place] facilities. Date Advance Directives Provider Source Dec 01, 2024 ADVANCE DIRECTIVE JULIO CESAR ARCE [facility] Encounter Notes: All associated encounter notes This section contains the clinical notes associated to the Encounter. Date/Time Encounter Note(s) Provider Source Dec 08, 2024 03:03 PM OPTOMETRY CONSULT: LOCAL TITLE: OPTOMETRY CONSULT [facility] STANDARD TITLE: OPTOMETRY CONSULT DATE OF NOTE: DEC 08, 2024@15:03 ENTRY DATE: DEC 08, 2024@15:03:47 AUTHOR: KARISHMA ALLRED EXP COSIGNER: URGENCY: STATUS: COMPLETED Ocular Coherence Tomography Report Date: 12/08/24 Reason for Order: 1. monitor DME Images available for viewing in [facility] Macula OCT Interpretation: Reliability: good OD: complete loss of foveal contour and retinal architecture diffuse areas of atrophy temporally OS: foveal contour intact c tr ERM, temp and sup small pockets of parafoveal IRF Assessment 1. Mild progression of DME OS from prior. Not VS and not central. Monitor in 3 mo. with any further progression consider referral to retina given monocular status /kole/ KARISHMA ALLRED OD Staff Physician, Optometry Signed: 12/08/2024 15:30 KARISHMA ALLRED [facility] Dec 08, 2024 02:59 PM OPTOMETRY CONSULT: LOCAL TITLE: OPTOMETRY CONSULT [facility] STANDARD TITLE: OPTOMETRY CONSULT DATE OF NOTE: DEC 08, 2024@14:59 ENTRY DATE: DEC 08, 2024@15:00:34 AUTHOR: KARISHMA ALLRED EXP COSIGNER: URGENCY: STATUS: COMPLETED Fundus Photography Date taken: 12/08/24 Images available for viewing in [employer] Imaging OU: grossly stable to 2020, improved quality today /kole/ KARISHMA ALLRED OD Staff Physician, Optometry Signed: 12/08/2024 15:31 KARISHMA ALLRED [facility] Dec 08, 2024 02:18 PM OPTOMETRY NOTE: LOCAL TITLE: OPTOMETRY NOTE STANDARD TITLE: OPTOMETRY NOTE DATE OF NOTE: DEC 08, 2024@14:18 ENTRY DATE: DEC 08, 2024@14:18:37 AUTHOR: KARISHMA ALLRED EXP COSIGNER: URGENCY: STATUS: COMPLETED Last seen 06/09/24 Reason for visit: CC: 1. DME f/u OS - Dx in the 1980s - insulin dependent - good compliance with meds - has glucose monitor on arm - BG stays around ~180-200 mg/dL and reports this is where his doctor wants him to be - Last HGA1C: ~7.5% per pt (stable to RICCO) 2. Eye fatigue - when reading for several hrs, eyes get tired and start to hurt 3. OHTN OD - tmax 26, iop not at goal at [facility] with fair complaince - pt states has been getting gtts in daily for last several weeks/months Ocular meds: timolol qam OD - LD - this morning - needs refills OTC ATs PRN Ocular ROS: 1. Mild NPDR OS, No retinopathy OD 2. OHTN OD 3. Ocular Trauma OD 4. Dry Eye OU 5. Cataract OS 6. Pseudphakia OD 7. Refractive Error/Presbyopia OU Family OcHX: (-) blindness (-) glaucoma (-) AMD (-) RD Cardiovascular ROS: no change from problem & medication lists CPRS Problem list, medications and allergies reviewed: CPRS Serology for Diabetes No GLUCOSE EO data found No HEMOGLOBIN A1C EO data found Cardiovascular BP: 142/71 (11/20/2024 13:32) Pulse: 86 (11/20/2024 13:11) Neuro: Orientation: Normal Psych: Mood/Affect: Normal Depression/suicide ideation: NO VISUAL ACUITY With correction Distance Visual Acuity OD 20/400 OS 20/25 Pupils PRRL OS (-)APD by reverse OD fixed c temp corectopia Confrontation: sup-nasal constriction OD, FTFC OS Extra-Ocular Muscles Full OU (-)pain (-)diplopia Externals/adnexa: Unremarkable OU LMRx: 08/17/23 OD +2.25 - 4.50 x 025 20/320 NI w/ large ranges shown OS plano - 1.00 x 100 20/20- Add: + 2.50 Refraction: 06/09/24 OD: +2.25 - 4.50 x 025 20/400+ NI with large ranges OS: plano -0.75 x100 20/20- Add: + 2.50 SLIT LAMP EXAMINATION Lids/Lashes/Lacrimal No blepharitis OU Conjunctiva/Sclera White/quiet OU Cornea Full thickness linear k scar OU from IT limbus extending near LOS; Dense endo pigment associated with K scar (+) ST epithelial edema w/ cysts (+) Tr SPK OU, instant TBUT OU Ant Chamber Deep and quiet OU; no cells or flare Iris Dyscoric OD, Normal OS, (-)NVI OU Lens PCIOL OD, clear, well centered 1-2+ NS cataract OS Intraocular Pressures (Goldmann) 1 gtt fluress Date OD OS Time Meds 02/19/21 26 20 1525 none 08/21/21 24 20 1406 xal QHS Rehabilitation Technician 12/11/21 20 19 1308 Timolol QAM Rehabilitation Technician 05/15/22 17 19 1154 Timolol QPH 11/16/22 18 17 1400 Timolol QPH 08/17/23 21 18 1552 timolol qPM OD 06/09/24 23 19 1415 Timolol qAM OD 12/08/24 23 21 1440 Timolol qam OD RETINAL EVALUATION unDilated retinal exam Optic Nerve OD: 0.45 CDR Flat, pink, distinct (-)NVD OS: 0.50 CDR Flat, pink, distinct (-)NVD Vessels: 2/3 OU Macula: OD: central atrophy OS: Flat, intact, few MAs Last DFE 06/2024 Assessment/Plan 12/08/24 1. Diabetes without retinopathy OD, mild NPDR c DME OS Last A1C ~7.5 (+)parafoveal IRF OS, BVCA 20 today (c/w cataracts) Pt ed on the importance of tight bg control Recommend A1C <7% to reduce risk of ocular complications Monitor at f/u in 3 mo with repeat OCT, low threshold for referral to retina given monocular status Would also consider updating A1c through [facility] at next appt 2. OHTN OD>>OS Likely exacerbated by prior trauma OD Tmax Previously trialed Timolol qam, xal QHS OD only c minimal effect IOP today with timolol qam OD OCT RNFL baseline 06/2024 OD: WNL 360 OS: WNL 360 OCT GCC 12/2024 OD: diffuse thinning 2/2 retinal detachment prior OS: WNL 360 OU *however inf sector thinner vs 06/2024 Pachs: pending Gonio: pending HVF pending (would recommend OS only as OD little utility) Repeat fundus photos 12/2024 grossly stable to 2020 TRI Given monocular status and IOP creep, recommend switching from timolol qam OD only to simbrinza BID OU. ed pt on use and SEs. Pt agreeable, would prefer to have mailed Monitor in 3 mo with repeat IOP/gonio/OCT pachs/GCC/RNFL 3. H/o Trauma with subsequent scarring OD (+) H/o corneal laceration with knife at age 12 (+) H/o RD at age 67 Vision limited 2/2 extensive corneal & retinal scarring OD BCVA stable around 20/400-20/200 Continue FT wear of polycarb lenses and monocular precautions Monitor 4. Dry Eye OU pt symptoms relieved c OTC ATS BID+ OU Discussed importance of instillation of different drops by 10 min as to not wash out medication monitor 5. Cataract OS mildly visually significant cautious referral given monocular status Defer cataract extraction until signs/sx indicate 6. Pseudophakia OD clear monitor 7. Refractive error/Presbyopia stable BCVA; discussed 20/20/20 rule for near work if still symptomatic at f/u, consider NVO Ed. pt on all findings RTC 3 mo for IOP check/gonio/DFE/OCT RNFL/mac/Pachs /es/ KARISHMA ALLRED, OD Staff Physician, Optometry Signed: 12/08/2024 15:30 KARISHMA ALLRED [facility] "
--- OUTSIDE RECORDS SUMMARY | 2025-01-17 11:49 | XMS_ITS | Clinical Summary ---
Author Organization [facility] Address [address] [place] [address] Phone Care Team Providers Care Bailer Tenders Supervisor Name Role Phone Patricia Chan STAPLE LASTER, DECONTAMINATOR Primary Care Pro vider Social History Tobacco [...] this topic Insurance [employer] Care Teams Bailer Tenders Supervisor Relationship Specialty Start Date End Date Patricia Chan APRN, DECONTAMINATOR [address] [place] [address] PCP - General Certified Nurse Practitioner 04/28/22
--- OUTSIDE RECORDS SUMMARY | 2025-01-17 11:49 | XMS_ITS | Clinical Summary ---
Author Organization [facility] Address [address] [place] [address] Care Team Providers Care Sausage Stringer Name Role Phone Patricia Chan DIGITAL PRINTER OPERATOR Primary Care Provider + Allergies Active Allergy [...] into each nostril daily 16 g 3 Active Active Problems Problem Noted Date Diagnosed Date COPD exacerbation 10/02/2024 Assessment & Plan (10/02/2024 2:35 PM [employer]): This is his second exacerbation since his Breztri was denied He will start steroids and antibiotics today as his symptoms have been persistent for 3 weeks Continue saline nasal rinses and intranasal steroids Continue montelukast and Zyrtec He is aware of signs and symptoms that are emergently reportable Nicotine dependence, cigarettes, in remission Assessment & Plan (10/02/2024 2:33 PM [employer]): He is overdue for annual lung cancer screening I have ordered this today when he will inform the office if he is not scheduled promptly Assessment & Plan (02/28/2024 8:27 PM CDT): Quit in 2021 Due for annual lung cancer screening in September 2024 Asthma-COPD overlap syndrome 08/25/2023 Assessment & Plan (10/02/2024 2:32 PM [employer]): Continue Breyna twice daily This lends inferior [...] him. We will attempt to contact the [place] again for coverage options. Albuterol as needed only, discussed indications for use He was aware signs and symptoms that would require earlier evaluation or change to his plan of care Assessment & Plan (02/28/2024 8:25 PM CDT): Continue Breyna twice daily, although this lends inferior clinical benefit as compared to Breztri I will send RX to the [place] pharmacy today in an attempt to get [...] Type Department Care Team Description 12/18/2024 Telephone [facility] [address] [place] [address] Kori Gifford RN 12/05/2024 Orders Only [facility] [place] [address] [facility] [address] [place] [address] Kori Ruano DIGITAL PRINTER OPERATOR from Last 3 Months Surgical History Surgery [...] on file Legal Sex Male 10:30 AM [employer] Gender Identity Not on file Sexual Orientation Not on file Obstetrics History Last Filed Vital Signs Vital Sign Reading Time Taken Comments Blood Pressure 150/80 10/02/2024 1:04 PM [employer] Pulse 114 10/02/2024 1:04 PM [employer] Temperature 37.5 C (99.5 F) 10/02/2024 1:04 PM [employer] Respiratory Rate 18 10/02/2024 1:04 PM [employer] Oxygen Saturation 99% 10/02/2024 1:04 PM [employer] Inhaled Oxygen Concentration - - Weight 89.7 kg (197 lb 11.2 oz) 10/02/2024 1:04 PM [employer] Height 185.4 cm (6' 1 ) 10/02/2024 1:04 PM [employer] Body Mass Index 26.08 10/02/2024 1:04 PM [employer] Plan of Treatment Health Maintenance Due Date [...] Read Routine (OP Routine) 09/22/2023 7:09 AM [employer] Nicotine dependence, cigarettes, in remission from Last 3 Months or Most Recently Relevant to Health Maintenance Results * CT Lung Cancer Screening (09/22/2023 7:09 AM [employer]) Anatomical Region Laterality Modality Chest N/A Computed Tomogra phy 09/22/2023 7:43 AM [employer] Narrative 09/22/2023 7:48 AM [employer] EXAM DESCRIPTION: CT LUNG CANCER SCREENING REASON [...] Mykel Castillo D.O. PS: PS Report ID: [id number] Reading Location: [id number] Procedure Note Mykel Castillo, DO - 09/22/2023 [...] Mykel Castillo D.O. PS: PS Report ID: [id number] Reading Location: [place] [address] Luther Solis MD IM CT PROCEDURES Final Result from Last 3 Months or Most Recently Relevant to Health Maintenance Insurance [facility] Care Teams Sausage Stringer Relationship Specialty Start Date End Date Patricia Chan NP PCP - General Nurse Practitioner 08/24/23
--- OUTSIDE RECORDS SUMMARY | 2025-01-17 11:49 | XMS_ITS | Clinical Summary ---
Author Organization [facility] Address [address] [place] [id number] Care Team Providers Care Machine Adjuster Leader Name Role Phone Patricia Chan [facility] Primary Care Provider + Allergies No [...] exists Zoster Vaccines (1 of 2) 2022 Pneumococcal Vaccine: 50+ Years (2 of 2 - PCV) 04/26/2024 04/26/2023 COVID-19 Vaccine ( - season) 2024 Meningococcal Vaccine Aged Out 12/06/1998 No juancho marichuy eligible based on patient's age to complete this topic Meningococcal B Vaccine Aged Out No l onger eligible based on patient's age to complete this topic RSV Immunizations Under 20 Months Aged Out No longer eligible based on patient's age to complete this topic Insurance [facility] Care Teams Machine Adjuster Leader Relationship Specialty Start Date End Date Patricia Chan, HYDRAMATIC SPECIALIST- [address] [place] [address] PCP - General NURSE PRACTITIONER 10/06/21
[2025-01-17 12:27] LABS: Hemoglobin 13.3 g/dL (14.0-18.0); Mean Corpuscular HGB Conc 33.3 g/dl (32-36); Mean Corpuscular Hemoglobin 31.4 pg (26-34); Mean Corpuscular Volume 94.6 fl (80-100); Mean Platelet Volume 8.7 fl (7.4-10.4); Platelet Count Result 329 k/mm3 (150-375); Red Blood Count 4.23 M/mm3 (4.6-6.20); Red Cell Distribution Width 12.3 % (11.5-14.5); White Blood Count 5.8 K/mm3 (4.5-10.0)
[2025-01-17 12:48] LABS: Iron 130 ug/dL (49-181)
[2025-01-17 12:57] LABS: Percent Iron Saturation 44 % (20-50)
[2025-01-17 13:50] LABS: Folic Acid 17.5 ng/mL (2.76->20)
== END 2025-01-17 11:48 | disposition home or self-care (01) ==
LOC: ANHLAB 11:48
PROVIDERS: PCP Nurse Practitioner Family; Visit Provider Nurse Practitioner
DX: K51.919 Ulcerative colitis, unspecified with unspecified complications (principal); D64.9 Anemia, unspecified
CPT/HCPCS: 36415; 82607; 82728; 82746; 83540; 83550; 85027